=== PATIENT | female | born 1985 | race Caucasian/White ===

== ENCOUNTER → 2020-06-01 09:34 | Outpatient (CLI) | payer MEDICARE, MEDICAID, SELFPAY ==
--- NOTE | 2020-06-01 | DI.MG.S_ITS ---
BILATERAL DIGITAL SCREENING MAMMOGRAM 3D/2D WITH CAD: 06/01/2020 CLINICAL: Routine screening. Comparison is made to exams dated: 05/11/2017 mammogram, 05/10/2016 mammogram, and 09/30/2015 mammogram - [facility]. The tissue of both breasts is heterogeneously dense. This may lower the sensitivity of mammography. Current study was also evaluated with a Computer Aided Detection (CAD) system. There is an oval equal density asymmetry with an indistinct margin in the left breast middle depth superior region seen on the mediolateral oblique view only. No other significant masses, calcifications, or other findings are seen in either breast. IMPRESSION: INCOMPLETE: NEEDS ADDITIONAL IMAGING EVALUATION The oval equal density asymmetry in the left breast is indeterminate. Mediolateral and spot compression views as well as additional views with possible ultrasound are recommended. This exam was interpreted at Station ID: [id number]. NOTE: For mammograms, a report in lay terms will be sent to the patient. Approximately 15% of breast malignancies will not be visualized mammographically. In the management of a palpable breast mass, a negative mammogram must not discourage biopsy of a clinically suspicious lesion. Electronically Signed By: Bentley wise/pipe:06/01/2020 10:48:11 letter sent: Additional Imaging Needed ACR BI-RADS Category 0: Incomplete [id number]
== END ==
PROVIDERS: Referring Provider Naturopath; Visit Provider Naturopath
DX: Z12.31 Encounter for screening mammogram for malignant neoplasm of breast (principal)
CPT/HCPCS: 77063; 77067

== ENCOUNTER → 2020-06-21 14:04 | Outpatient (CLI) | payer MEDICARE, MEDICAID, SELFPAY ==
--- NOTE | 2020-06-21 | DI.US.S_ITS ---
ULTRASOUND OF LEFT BREAST: 06/21/2020 CLINICAL: Left breast abnormal mammo. Comparison is made to exams dated: 06/21/2020 mammogram, 06/01/2020 mammogram, 05/11/2017 mammogram, and 05/10/2016 [facility]. Color flow and real-time ultrasound of the left breast were performed. [place] scale images of the real-time examination were reviewed. There is a 0.4 cm x 0.2 cm x 0.3 cm simple oval cyst in the left breast at 12 o'clock middle depth 5 cm from the nipple. This oval cyst is anechoic. Color flow imaging demonstrates that there is no vascularity present. THis may or may not correlate with the mammographic finding seen in the superior left breast on the MLO view only. IMPRESSION: PROBABLY BENIGN The 0.4 cm x 0.2 cm x 0.3 cm oval cyst in the left breast is consistent with a simple cyst and is probably benign as it may or may not correlate with the superior left breast asymmetry seen on recent screening and today's mammograms. A follow-up left mammogram with possible left ultrasound in 6 months is recommended to demonstrate continued stability. Findings and recommendations were conveyed to the patient during today's visit. This exam was interpreted at Station ID: [id number]. Electronically Signed By: Ari Grider M.D. at/:06/21/2020 16:19:57 letter sent: Followup Recommended Ultrasound BI-RADS: 3 Probably benign
--- NOTE | 2020-06-21 | DI.MG.S_ITS ---
UNILATERAL LEFT DIGITAL DIAGNOSTIC MAMMOGRAM 3D/2D WITH ADDITIONAL VIEWS: 06/21/2020 CLINICAL: Additional evaluation requested from prior study. Comparison is made to exams dated: 06/01/2020 mammogram, 05/11/2017 mammogram, and 05/10/2016 mammogram - [facility]. The tissue of left breast is heterogeneously dense. This may lower the sensitivity of mammography. Redemonstration of the 0.4 cm x 0.7 cm oval equal density asymmetry with an obscured margin in the left breast middle depth superior region seen on the mediolateral oblique view only. This is seen on today's additional views. No other significant masses or calcifications are seen in the breast. IMPRESSION: INCOMPLETE: NEEDS ADDITIONAL IMAGING EVALUATION The 0.4 cm x 0.7 cm oval equal density asymmetry in the left breast is indeterminate. An ultrasound is recommended for further evaluation and is scheduled to immediately follow this study. This exam was interpreted at Station ID: [id number]. NOTE: For mammograms, a report in lay terms will be sent to the patient. Approximately 15% of breast malignancies will not be visualized mammographically. In the management of a palpable breast mass, a negative mammogram must not discourage biopsy of a clinically suspicious lesion. Electronically Signed By: Ari Grider M.D. aty/:06/21/2020 16:13:12 ACR BI-RADS Category 0: Incomplete [id number]
== END ==
PROVIDERS: Referring Provider Naturopath; Visit Provider Naturopath
DX: R92.8 Other abnormal and inconclusive findings on diagnostic imaging of breast (principal); N60.02 Solitary cyst of left breast
CPT/HCPCS: 76642; 77065; G0279

== ENCOUNTER → 2020-09-09 14:52 | Outpatient (CLI) | payer MEDICARE, MEDICAID, SELFPAY | PROVIDERS: PCP Naturopath; Visit Provider Obstetrics & Gynecology | DX: F98.0 Enuresis not due to a substance or known physiological condition (principal); R32 Unspecified urinary incontinence | CPT/HCPCS: 87086 ==

== ENCOUNTER → 2020-12-27 13:45 | Outpatient (CLI) | payer MEDICARE, MEDICAID, SELFPAY ==
--- NOTE | 2020-12-27 13:46 | DI.US.S_ITS ---
PROCEDURE: US THYROID INDICATIONS: Enlarged thyroid TECHNIQUE: Real-time scanning was performed of the thyroid gland, with image documentation. COMPARISON: None. FINDINGS: Right: Thyroid lobe measures 5.1 x 1.3 x 2.0 cm, and is homogeneous in echotexture. Left: Thyroid lobe measures 5.4 x 1.2 x 1.8 cm, and is homogenous in echotexture. Isthmus: 3 mm thick. Nodule number: 2 Location: Right inferior Size: 0.5 x 0.3 x 0.3 cm Composition: Predominantly cystic Echogenicity: Hypoechoic Shape: Wider than tall Margins: Smooth Echogenic foci: Macrocalcification Total points: 3 ACR TI-RADS category: 3, mildly suspicious Nodule number: 3 Location: Left upper Size: 0.4 x 0.3 x 0.5 cm Composition: Predominantly cystic Echogenicity: Hypoechoic Shape: Wider than tall Margins: Smooth Echogenic foci: Macrocalcification Total points: 3 ACR TI-RADS category: 3, mildly suspicious Nodule number: 4 Location: Left mid Size: 1.1 x 0.5 x 0.9 cm Composition: Predominantly cystic Echogenicity: Hypoechoic Shape: Wider than tall Margins: Smooth Echogenic foci: Macrocalcification Total points: 3 ACR TI-RADS category: 3, mildly suspicious Nodule number: 5 Location: Left inferior Size: 0.6 x 0.4 x 0.7 cm Composition: Predominantly cystic Echogenicity: Hypoechoic Shape: Wider than tall Margins: Smooth Echogenic foci: Macrocalcification Total points: 3 ACR TI-RADS category: 3, mildly suspicious IMPRESSION: Multiple small mildly suspicious thyroid nodules that do not require dedicated imaging follow-up based on size and imaging characteristics. Imaging guidelines provided below. ACR TI-RADS definitions and recommendations: TI-RADS 1 (benign): 0 points. FNA not needed. TI-RADS 2 (not suspicious): 2 points. FNA not needed. TI-RADS 3 (mildly suspicious): 3 points. * FNA if 2.5 cm or larger, follow up if 1.5 cm or larger (at 1, 3, and 5 years). TI-RADS 4 (moderately suspicious): 4-6 points. * FNA if 1.5 cm or larger, follow up if 1 cm or larger (at 1, 2, 3, and 5 years). TI-RADS 5 (highly suspicious): 7 points or more. * FNA if 1 cm or larger, follow up if 0.5 cm or larger (every year for 5 years). Dictated by: Napoleon Rodgers M.D. on 12/28/2020 at 17:30 Approved by: Napoleon Rodgers M.D. on 12/28/2020 at 17:39
[2020-12-27 17:10] LABS: Free T4, Direct Thyroxine 1.43 ng/dL (0.78-2.19)
[2020-12-27 17:23] LABS: Thyroid Stimulating Hormone 0.578 uIU/mL (0.47-4.68)
[2021-01-01 18:41] LABS: Triiodothyronine T3 Reverse 14.7 ng/dL (9.2-24.1)
== END ==
PROVIDERS: PCP Naturopath; Referring Provider Obstetrics & Gynecology; Visit Provider Obstetrics & Gynecology
DX: E01.0 Iodine-deficiency related diffuse (endemic) goiter (principal)
CPT/HCPCS: 36415; 76536; 84439; 84443; 84481; 84482

== ENCOUNTER → 2021-01-12 13:19 | Outpatient (CLI) | payer MEDICARE, MEDICAID, SELFPAY ==
--- NOTE | 2021-01-12 | DI.MG.S_ITS ---
UNILATERAL LEFT DIGITAL DIAGNOSTIC MAMMOGRAM 3D/2D SHORT-TERM FOLLOW-UP: 01/12/2021 CLINICAL: Patient returns for a 6 month follow up of the left breast. Comparison is made to exams dated: 06/21/2020 mammogram, 06/01/2020 mammogram, and 05/11/2017 mammogram - [facility]. The tissue of left breast is heterogeneously dense. This may lower the sensitivity of mammography. There is a stable oval equal density asymmetry with a partially obscured margin in the left breast middle depth superior region seen on the mediolateral oblique view only. This is seen in additional views. No suspicious changes. No other significant masses or calcifications are seen in the breast. IMPRESSION: PROBABLY BENIGN The small asymmetry in the left breast most likely is a cyst amidst fibroglandular tissue (a simple cyst was noted in this area on the previous exam) remains unchanged and is probably benign. A follow-up mammogram in 6 months is recommended to demonstrate continued stability. Findings and recommendations were conveyed to the patient at time of exam. This exam was interpreted at Station ID: [id number]. NOTE: For mammograms, a report in lay terms will be sent to the patient. Approximately 15% of breast malignancies will not be visualized mammographically. In the management of a palpable breast mass, a negative mammogram must not discourage biopsy of a clinically suspicious lesion. Electronically Signed By: Isabela palacios/:01/12/2021 14:05:05 copy to: Teo Gonsalez MD, Dr. Elijah Gonsalez, ph: [phone] letter sent: Followup Recommended ACR BI-RADS Category 3: Probably benign [id number]
== END ==
PROVIDERS: PCP Naturopath; Referring Provider Naturopath; Visit Provider Naturopath
DX: R92.8 Other abnormal and inconclusive findings on diagnostic imaging of breast (principal); N64.89 Other specified disorders of breast; M92.8 Other specified juvenile osteochondrosis
CPT/HCPCS: 77065; G0279

== ENCOUNTER 2021-02-09 18:55 | Emergency (ER) | payer MEDICARE, MEDICAID, SELFPAY ==
[2021-02-09 19:15] VITALS: BP 136/77; PULSE 62; RESP 14; TEMP 36.9; O2SAT 100; BMI 29.7
[2021-02-09 19:44] LABS: UR Morphine/Opiate cutoff 300 Negative (Negative); Ur Creatinine Normal (Normal); Ur Specific Gravity Normal (Normal); Urine Amphetamines Negative (Negative); Urine Barbiturates Negative (Negative); Urine Benzodiazepines Negative (Negative); Urine Cocaine Negative (Negative); Urine MDMA Negative (Negative); Urine Methadone Negative (Negative); Urine Methamphetamines Negative (Negative); Urine Oxycodone Negative (Negative); Urine Phencyclidine Negative (Negative); Urine Tetrahydrocannabinol Negative (Negative); Urine Tricyclic Antidepressant Negative (Negative); Urine pH Normal (Normal)
--- NOTE | 2021-02-09 20:06 | ED_ITS ---
HPI - Psych <Yobany Pang, - Last Filed: 02/10/21 18:03> General Chief Complaint: Psychiatric Symptoms Stated Complaint: MENTAL HEALTH CRISIS Time Seen by Provider: 02/09/21 19:09 Source: patient Mode of arrival: Ambulatory Limitations: no limitations History of Present Illness HPI Narrative: Patient is a 35-year-old female who arrived with her father by private vehicle for evaluation of suicidal ideations and when she initially stated was a ?mental health crisis ?patient has had issues with mental health in the past. She stated that ?many years ago ?she attempted to kill herself and also has been admitted to the hospital in the past. She does see a mental health provider in [place]. Most recent visit with this individual was within the past month. She is currently taking medications for her symptoms. She denies alcohol or drug abuse. She states that she has many life stressors to include being a burden on herself and her family and society. She states that she is not getting any help from society with regard to her mental health issues. This evening the police were called to her house by family for evaluation after she reportedly expressed some suicidal ideation. There is also some reports that she was going to use the please in order to kill herself. She also made comments about taking pills. She is currently dealing with issues with wetting the bed. She takes medications for this. She acknowledges that these are antipsychotic medications but she states that she is not psychotic and she only takes them because of the bedwetting. She has a difficult time sleeping at night. She states that it has been months since she has had a good night sleep. She is unsure as to exactly why she is here in the emergency department other men she would just like help for her symptoms and would like help with her social issues. She states she does not want to be admitted to the hospital because of her symptoms today. Related Data Home Medications Medication Instructions Recorded Confirmed imipramine HCl 10 mg tablet 20 mg PO ONCE 10/20/20 12/16/20 Seroquel 02/09/21 Allergies Allergy/AdvReac Type Severity Reaction Status Date / Time Penicillins Allergy Mild RASH Verified 02/09/21 19:15 venom-honey bee Allergy Unknown Verified 02/09/21 19:15 [bee venom (honey bee)] fluoxetine AdvReac Mild HALLUCINATI Verified 02/09/21 19:15 ONS Review of Systems <Yobany Pang DO - Last Filed: 02/10/21 18:03> Constitutional Constitutional: Denies fever(s) and Denies headache(s) ENT Ears, Nose, Mouth, and Throat: Denies headache(s) Cardiovascular Cardiovascular: Denies chest pain and Denies dyspnea Respiratory Respiratory: Denies dyspnea Gastrointestinal Gastrointestinal: Denies abdominal pain Integumentary/Breasts Skin/Breast: Denies rash Neurologic Neurologic: Denies headache(s) Psychiatric Psychiatric: Reports abnormal sleep pattern, Reports anxiety, Reports depression, Reports hopelessness, Reports irritability and Reports suicidal ideation Hematologic/Lymphatic On Anticoagulants: No Allergic/Immunologic Allergic/Immunologic: Denies urticaria Patient History <Yobany Pang DO - Last Filed: 02/10/21 18:03> Medical History Esophagus disorder Lower urinary tract symptoms (LUTS) Mixed incontinence Secondary nocturnal enuresis Urinary incontinence in female Surgical History Status post appendectomy Status post wisdom tooth extraction Family History Father Hypertension Social History Smoking Status: Never smoker Smoking Status: Never smoker alcohol intake frequency: holidays/special occasions only Substance Use Type: does not use Exam <Yobany Pang DO - Last Filed: 02/10/21 18:03> Initial Vital Signs Initial Vital Signs: Vital Signs Temperature 98.5 F 02/09/21 19:15 Pulse Rate 62 02/09/21 19:15 Respiratory Rate 14 02/09/21 19:15 Blood Pressure 136/77 02/09/21 19:15 Pulse Oximetry 100 02/09/21 19:15 Const General: cooperative Limitations: mental status not altered HENMT Head: normal to inspection and normocephalic Resp Effort & Inspection: normal respiratory effort Cardio Rate: regular rate GI Inspection: non-distended Skin Lesions: no lesions Rashes: no rashes Neuro General: patient alert, patient awake and patient oriented x3 Gait: normal gait Extrem General: normal to inspection Psych Appearance: well kempt Speech and Movement: agitated, pressured speech and restless Mood: anxious mood and angry Affect: sad and irritable affect Attitude: cooperative Thought Content: suicidality <Juanita Ramirez MD - Last Filed: 02/10/21 18:35> Initial Vital Signs Initial Vital Signs: Vital Signs Temperature 98.5 F 02/09/21 19:15 Pulse Rate 62 02/09/21 19:15 Respiratory Rate 14 02/09/21 19:15 Blood Pressure 136/77 02/09/21 19:15 Pulse Oximetry 100 02/09/21 19:15 Course <Yobany Pang DO - Last Filed: 02/10/21 18:03> Orders Ordered: Discontinued Medications Lorazepam (Lorazepam 0.5 Mg Tablet) 1 mg PO NOW ONE Stop: 02/09/21 20:07 Last Admin: 02/09/21 20:26 Dose: 1 mg Documented by: OMAR Vital Signs Vital signs: Vital Signs - 8 hr 02/09/21 19:15 02/09/21 23:52 Temperature 98.5 F Pulse Rate 62 91 H Respiratory Rate 14 Blood Pressure 136/77 114/69 Pulse Oximetry 100 97 <Juanita Ramirez MD - Last Filed: 02/10/21 18:35> Orders Ordered: Discontinued Medications Lorazepam (Lorazepam 0.5 Mg Tablet) 1 mg PO NOW ONE Stop: 02/09/21 20:07 Last Admin: 02/09/21 20:26 Dose: 1 mg Documented by: OMAR Vital Signs Vital signs: Vital Signs - 8 hr 02/09/21 19:15 02/09/21 23:52 Temperature 98.5 F Pulse Rate 62 91 H Respiratory Rate 14 Blood Pressure 136/77 114/69 Pulse Oximetry 100 97 MDM - Psych <Yobany Pang DO - Last Filed: 02/10/21 18:03> Lab Data Attestation: I reviewed the patient's lab results. Result diagrams: 02/09/21 20:27 02/09/21 20:27 Labs: Lab Results 02/09/21 02/09/21 02/09/21 Range/Units 19:15 19:30 20:27 WBC 5.2 (4.5-11.0) X10^3/uL RBC 4.27 (4.0-5.2) X10^6/uL Hgb 13.8 (12.0-16.0) g/dL Hct 40.3 (36-46) % MCV 94.3 (80-100) fL MCH 32.4 (26-34) PG MCHC 34.3 (30-36) % RDW 11.9 (11.6-14.8) % Plt Count 204 (150-400) X10^3/uL Neut % (Auto) 57.1 (50-75) % Lymph % (Auto) 33.2 (25-40) % [place] % (Auto) 5.7 (3-14) % Eos % (Auto) 3.0 (2-4) % Baso % (Auto) 1.0 (0-2) % Neut # (Auto) 3000 (3644-8237) /uL Lymph # (Auto) 1700 (9333-9693) /uL [place] # (Auto) 300 (0-900) /uL Eos # (Auto) 200 (0-450) /uL Baso # (Auto) 100 (0-100) /uL Sodium (137-145) mmol/L Potassium (3.4-5.1) mmol/L Chloride (98-107) mmol/L Carbon Dioxide (22-32) mmol/L BUN (7-17) mg/dL Creatinine (0.52-1.04) mg/dL Estimated GFR (>60) mL/min BUN/Creatinine Ratio (6-22) Glucose (70-100) mg/dL Calcium (8.4-10.2) mg/dL Total Bilirubin (0.2-1.3) mg/dL AST (14-36) IU/L ALT (<35) IU/L Alkaline Phosphatase (38-126) U/L Total Protein (6.3-8.2) g/dL Albumin (3.5-5.0) g/dL Globulin (1.7-4.1) g/dL Albumin/Globulin Ratio (1.0-2.8) Lipase (23-300) U/L TSH (0.47-4.68) uIU/mL U Opiates 300ng/mL cut Negative (Negative) Ur Oxycodone Screen Negative (Negative) Urine Methadone Screen Negative (Negative) Acetaminophen (10-30) ug/mL Ur Barbiturates Screen Negative (Negative) U Tricyclic Antidepress Negative (Negative) Ur Phencyclidine Scrn Negative (Negative) Ur Amphetamines Screen Negative (Negative) U Methamphetamines Scrn Negative (Negative) Ur MDMA Scrn (Ecstasy) Negative (Negative) U Benzodiazepines Scrn Negative (Negative) Urine Cocaine Screen Negative (Negative) U Marijuana (THC) Screen Negative (Negative) Ethyl Alcohol ( - 10) mg/dL SARS-CoV-2 (PCR) Negative (Negative) 02/09/21 02/09/21 Range/Units 20:27 20:27 WBC (4.5-11.0) X10^3/uL RBC (4.0-5.2) X10^6/uL Hgb (12.0-16.0) g/dL Hct (36-46) % MCV (80-100) fL MCH (26-34) PG MCHC (30-36) % RDW (11.6-14.8) % Plt Count (150-400) X10^3/uL Neut % (Auto) (50-75) % Lymph % (Auto) (25-40) % Berrien % (Auto) (3-14) % Eos % (Auto) (2-4) % Baso % (Auto) (0-2) % Neut # (Auto) (8891-1148) /uL Lymph # (Auto) (6391-5247) /uL Berrien # (Auto) (0-900) /uL Eos # (Auto) (0-450) /uL Baso # (Auto) (0-100) /uL Sodium 136 L (137-145) mmol/L Potassium 3.6 (3.4-5.1) mmol/L Chloride 102 (98-107) mmol/L Carbon Dioxide 28 (22-32) mmol/L BUN 17 (7-17) mg/dL Creatinine 0.51 L (0.52-1.04) mg/dL Estimated GFR > 60.0 (>60) mL/min BUN/Creatinine Ratio 33.3 H (6-22) Glucose 94 (70-100) mg/dL Calcium 9.5 (8.4-10.2) mg/dL Total Bilirubin 0.2 (0.2-1.3) mg/dL AST 27 (14-36) IU/L ALT 19 (<35) IU/L Alkaline Phosphatase 81 (38-126) U/L Total Protein 6.9 (6.3-8.2) g/dL Albumin 4.3 (3.5-5.0) g/dL Globulin 2.6 (1.7-4.1) g/dL Albumin/Globulin Ratio 1.7 (1.0-2.8) Lipase 75 (23-300) U/L TSH 1.20 (0.47-4.68) uIU/mL U Opiates 300ng/mL cut (Negative) Ur Oxycodone Screen (Negative) Urine Methadone Screen (Negative) Acetaminophen < 10 L (10-30) ug/mL Ur Barbiturates Screen (Negative) U Tricyclic Antidepress (Negative) Ur Phencyclidine Scrn (Negative) Ur Amphetamines Screen (Negative) U Methamphetamines Scrn (Negative) Ur MDMA Scrn (Ecstasy) (Negative) U Benzodiazepines Scrn (Negative) Urine Cocaine Screen (Negative) U Marijuana (THC) Screen (Negative) Ethyl Alcohol < 10 ( - 10) mg/dL SARS-CoV-2 (PCR) (Negative) Point of Care Testing Test Results Negative Urine Dip Bedside Urine Glucose Negative Bedside Urine Bilirubin - Negative Bedside Urine Ketone - Negative Urine Specific [place] 1.020 Bedside Urine Occult Blood - Negative Bedside Urine pH 7 Bedside Urine Protein - Negative Bedside Urine Urobilinogen - Negative Bedside Urine Nitrite - Negative Bedside Urine Leukocytes - Negative Esterase MDM Narrative Medical decision making narrative: Patient is medically cleared. She does have a mental health provider that she sees a what appears to be on a fairly regular basis. Patient states that she does not want to be admitted to the hospital. She obviously has many social issues stating that side is not helping her with her mental health problems. Her father who was initially at bedside agrees that the every time they have tried to get her set up with different types of programs she is denied. There has been discussion about low years getting of all to help with these issues. The patient states she feels like she is a burden on herself and also were family. She was willing to stay in the [facility] department this evening in order to talk with social work the next day. She was given Ativan to help her calm down and also to help her sleep. She is medically cleared. Care turned over to day provider at change of shift to follow up with social work and disposition. <Juanita Ramirez MD - Last Filed: 02/10/21 18:35> Medical Records Attestation: I reviewed the patient's medical records. Lab Data Attestation: I reviewed the patient's lab results. Labs: Lab Results 02/09/21 02/09/21 02/09/21 Range/Units 19:15 19:30 20:27 WBC 5.2 (4.5-11.0) X10^3/uL RBC 4.27 (4.0-5.2) X10^6/uL Hgb 13.8 (12.0-16.0) g/dL Hct 40.3 (36-46) % MCV 94.3 (80-100) fL MCH 32.4 (26-34) PG MCHC 34.3 (30-36) % RDW 11.9 (11.6-14.8) % Plt Count 204 (150-400) X10^3/uL Neut % (Auto) 57.1 (50-75) % Lymph % (Auto) 33.2 (25-40) % Berrien % (Auto) 5.7 (3-14) % Eos % (Auto) 3.0 (2-4) % Baso % (Auto) 1.0 (0-2) % Neut # (Auto) 3000 (3451-2535) /uL Lymph # (Auto) 1700 (4357-8960) /uL Berrien # (Auto) 300 (0-900) /uL Eos # (Auto) 200 (0-450) /uL Baso # (Auto) 100 (0-100) /uL Sodium (137-145) mmol/L Potassium (3.4-5.1) mmol/L Chloride (98-107) mmol/L Carbon Dioxide (22-32) mmol/L BUN (7-17) mg/dL Creatinine (0.52-1.04) mg/dL Estimated GFR (>60) mL/min BUN/Creatinine Ratio (6-22) Glucose (70-100) mg/dL Calcium (8.4-10.2) mg/dL Total Bilirubin (0.2-1.3) mg/dL AST (14-36) IU/L ALT (<35) IU/L Alkaline Phosphatase (38-126) U/L Total Protein (6.3-8.2) g/dL Albumin (3.5-5.0) g/dL Globulin (1.7-4.1) g/dL Albumin/Globulin Ratio (1.0-2.8) Lipase (23-300) U/L TSH (0.47-4.68) uIU/mL U Opiates 300ng/mL cut Negative (Negative) Ur Oxycodone Screen Negative (Negative) Urine Methadone Screen Negative (Negative) Acetaminophen (10-30) ug/mL Ur Barbiturates Screen Negative (Negative) U Tricyclic Antidepress Negative (Negative) Ur Phencyclidine Scrn Negative (Negative) Ur Amphetamines Screen Negative (Negative) U Methamphetamines Scrn Negative (Negative) Ur MDMA Scrn (Ecstasy) Negative (Negative) U Benzodiazepines Scrn Negative (Negative) Urine Cocaine Screen Negative (Negative) U Marijuana (THC) Screen Negative (Negative) Ethyl Alcohol ( - 10) mg/dL SARS-CoV-2 (PCR) Negative (Negative) 02/09/21 02/09/21 Range/Units 20:27 20:27 WBC (4.5-11.0) X10^3/uL RBC (4.0-5.2) X10^6/uL Hgb (12.0-16.0) g/dL Hct (36-46) % MCV (80-100) fL MCH (26-34) PG MCHC (30-36) % RDW (11.6-14.8) % Plt Count (150-400) X10^3/uL Neut % (Auto) (50-75) % Lymph % (Auto) (25-40) % Berrien % (Auto) (3-14) % Eos % (Auto) (2-4) % Baso % (Auto) (0-2) % Neut # (Auto) (1774-2754) /uL Lymph # (Auto) (0709-2040) /uL Berrien # (Auto) (0-900) /uL Eos # (Auto) (0-450) /uL Baso # (Auto) (0-100) /uL Sodium 136 L (137-145) mmol/L Potassium 3.6 (3.4-5.1) mmol/L Chloride 102 (98-107) mmol/L Carbon Dioxide 28 (22-32) mmol/L BUN 17 (7-17) mg/dL Creatinine 0.51 L (0.52-1.04) mg/dL Estimated GFR > 60.0 (>60) mL/min BUN/Creatinine Ratio 33.3 H (6-22) Glucose 94 (70-100) mg/dL Calcium 9.5 (8.4-10.2) mg/dL Total Bilirubin 0.2 (0.2-1.3) mg/dL AST 27 (14-36) IU/L ALT 19 (<35) IU/L Alkaline Phosphatase 81 (38-126) U/L Total Protein 6.9 (6.3-8.2) g/dL Albumin 4.3 (3.5-5.0) g/dL Globulin 2.6 (1.7-4.1) g/dL Albumin/Globulin Ratio 1.7 (1.0-2.8) Lipase 75 (23-300) U/L TSH 1.20 (0.47-4.68) uIU/mL U Opiates 300ng/mL cut (Negative) Ur Oxycodone Screen (Negative) Urine Methadone Screen (Negative) Acetaminophen < 10 L (10-30) ug/mL Ur Barbiturates Screen (Negative) U Tricyclic Antidepress (Negative) Ur Phencyclidine Scrn (Negative) Ur Amphetamines Screen (Negative) U Methamphetamines Scrn (Negative) Ur MDMA Scrn (Ecstasy) (Negative) U Benzodiazepines Scrn (Negative) Urine Cocaine Screen (Negative) U Marijuana (THC) Screen (Negative) Ethyl Alcohol < 10 ( - 10) mg/dL SARS-CoV-2 (PCR) (Negative) Point of Care Testing Test Results Negative Urine Dip Bedside Urine Glucose Negative Bedside Urine Bilirubin - Negative Bedside Urine Ketone - Negative Urine Specific [place] 1.020 Bedside Urine Occult Blood - Negative Bedside Urine pH 7 Bedside Urine Protein - Negative Bedside Urine Urobilinogen - Negative Bedside Urine Nitrite - Negative Bedside Urine Leukocytes - Negative Esterase MDM Narrative Medical decision making narrative: 35-year-old woman, care is assumed awaiting social work help with suicide ideation/psychiatric issues. She is requesting her morning meds including 1 g of Phenix Thyroid, iodine, fish oil. Offered to calculate appropriate dose of Synthroid and she declined. She will see if her father can bring her armor thyroid in. She also notes that she takes Seroquel for sleep in the evenings but is unsure of the dose. Care and behaviors have been escalating slightly over the course of the morning. She was asking to talk with the lower before the hospice social worker. When in and chatted with her now. She is absolutely not interested in adding any medications and she currently is working with a psychiatrist as well as a provisioning specialist. She is not interested in inpatient voluntary care at this time. She has passive suicidal ideation and would ?like somebody to do it for her? but has no specific plan to hurt herself. She has a safe place to live and a father who sound supportive and willing to transport her to visits if available. She would like increased counseling time and would be interested in seeing what ad ditional outpatient mental health options could be available to her. She finds that 1 hour a month with her psychiatrist, Dr. Gonsalez with [facility] and [place], is not adequate. At this point she has flat affect but is able to focus and concentrate. She is clearly making appropriate decisions is not a danger to herself or others and is absolutely voluntary. Explained her that the next step in helping her would be having her check with our hospice social worker to see what additional options we have. She was amenable to this. 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 She apparently carries the provisional diagnosis of autism. This will be for case management [phone]. Is looking for additional counseling options and will arrange for [facility] check ins over the next couple of days Discharge Plan Departure Patient Disposition: Home Clinical Impression: Suicidal ideations, Autism Activity Restrictions/Additional Instructions: Thank you for coming in today You had a chance to talk with our hospice social worker. He is given you information to contact Aging and Disability Services through [facility] [phone]. The may be able to help with case management an additional services for you. You are aware of Psychology today web site [facility] will be contacting you over the next few days to make sure that you are feeling safe. You can also contact the social work light here at [facility] at [phone] If you do feel unsafe and feel that you are going to hurt yourself directly, please feel free to return to the emergency department Prescriptions: No Action Seroquel RF: 0 imipramine HCl 10 mg tablet 20 mg PO ONCE RF: 0 Referrals: Alan Quiros ND [Primary Care Provider] -
[2021-02-09 20:08] LABS: COVID19 -Nasal RAPID Negative (Negative)
[2021-02-09] MEDS: LORazepam 0.5 MG TABLET 1 MG PO (20:26)
[2021-02-09 20:34] LABS: Add Manual Diff / Slide Review NO; Basophils Absolute Auto 100 /uL (0-100); Eosinophils Absolute Auto 200 /uL (0-450); Hematocrit 40.3 % (36-46); Hemoglobin 13.8 g/dL (12.0-16.0); Lymphocytes Absolute Auto 1700 /uL (1100-4500); Lymphocytes Percent Auto 33.2 % (25-40); Mean Corpuscular HGB Conc 34.3 % (30-36); Mean Corpuscular Hemoglobin 32.4 PG (26-34); Mean Corpuscular Volume 94.3 fL (80-100); Monocytes Absolute Auto 300 /uL (0-900); Monocytes Percent Auto 5.7 % (3-14); Neutrophils Absolute Auto 3000 /uL (1500-7000); Neutrophils Percent Auto 57.1 % (50-75); Platelet Count 204 X10^3/uL (150-400); Red Blood Cell Count 4.27 X10^6/uL (4.0-5.2); Red Cell Distribution Width 11.9 % (11.6-14.8); White Blood Cell Count 5.2 X10^3/uL (4.5-11.0)
[2021-02-09 20:55] LABS: Acetaminophen < 10 ug/mL (10-30); Alanine Aminotransferase 19 IU/L (<35); Albumin 4.3 g/dL (3.5-5.0); Albumin Globulin Ratio 1.7 (1.0-2.8); Alkaline Phosphatase 81 U/L (38-126); Aspartate Aminotransferase 27 IU/L (14-36); BUN Creatinine Ratio 33.3 (6-22); Bilirubin Total 0.2 mg/dL (0.2-1.3); Blood Urea Nitrogen 17 mg/dL (7-17); Calcium 9.5 mg/dL (8.4-10.2); Carbon Dioxide 28 mmol/L (22-32); Chloride 102 mmol/L (98-107); Estimated Glomerular Filt Rate > 60.0 mL/min (>60); Ethanol (ETOH) < 10 mg/dL; Globulin 2.6 g/dL (1.7-4.1); Glucose 94 mg/dL (70-100); HEMOLYSIS < 15 (0-50); Lipase 75 U/L (23-300); Potassium 3.6 mmol/L (3.4-5.1); Sodium 136 mmol/L (137-145); Total Protein 6.9 g/dL (6.3-8.2)
--- NOTE | 2021-02-09 21:12 | PC.NURSE ---
1929: Pt sitting up in bed. Reports I don't know what to do. I'm so overwhelmed. She called the crisis line around 1300 and crisis line called police. She states the police told me he would bring me here and then said he couldn't because the overtime wasn't approved. Pt brought in by her dad, who is in the car. Reports thoughts of ending her life due to increased stress and I can't get the help that I need. Reports frustrations with getting community help for resources she needs to assist with her Autism Spectrum Disorder. When asked if she has a specific plan states, maybe I could take some pills. Denies hoarding pills. Reports suicide attempt years ago I took pills and was in the ICU. Pt hasn't been sleeping well for the past 4-5 months. This has been exacerbated by bed wetting that has been occuring for the past two years. She has seen urologist Mary and was reffered to . Has appt in February. 1939: Pt states it is okay for her dad to be in room. He states that they have been trying to get pt resources to help take the load off of her with her Autism Disorder. She qualifies by federal standards, but not state. She's been trying to get her food stamps increased. Pt lives with her dad. 1944: in room to speak with pt. Pt continues to report vague plan of I don't know what I would do. I don't want to be a burden on society. Pt also reports not knowing if she wants to transfer to a facility, she is afraid of COVID. 1999: Pt dad brought belongings, placed in locked cabinet. Pt did change into pajamas and pull up brief. 2025: Pt given po Ativan for anxiety. Ear plugs provided to help pt rest. Warm blanket provided, lights turned down. Curtain open.
[2021-02-09 23:52] VITALS: BP 114/69; PULSE 91; O2SAT 97
--- NOTE | 2021-02-10 04:59 | PC.NURSE ---
Pt tearful. Pt states that she wishes she was because she doesn't want to be a burden on her father. Pt states that she wishes she could be allowed to advocate for herself but doesn't know how
--- NOTE | 2021-02-10 07:33 | PC.NURSE ---
Patient is sitting up in bed waiting for her breakfast. She is calm and compliant at this time.
--- NOTE | 2021-02-10 08:01 | PC.NURSE ---
Pt was offered synthroid as we do not carry armour thyroid. Pt declined at this time and requested that I call her father to bring it to her.
--- NOTE | 2021-02-10 08:03 | PC.NURSE ---
I attempted to call pts father to bring meds to her. There was no answer
--- NOTE | 2021-02-10 08:31 | PC.NURSE ---
pt requested we call her father to have him bring milk for her. we spoke to him concerning that.
--- NOTE | 2021-02-10 09:45 | PC.NURSE ---
pt up to bathroom
--- NOTE | 2021-02-10 12:50 | PC.NURSE ---
Pt states that she wants with dignity paperwork and for the social insurance specialist to assist with it. before and after school daycare worker made aware that she will speak with him. Pt also would like to speak with [place] public defenders office and asked for phone as well as number.
--- NOTE | 2021-02-10 12:56 | PC.NURSE ---
Given depends, wipes and cream for personal hygiene. Given phone and phone number for [place] public defenders office at her request.
--- NOTE | 2021-02-10 13:32 | PC.NURSE ---
Pt provided with [facility] Training [employer] Officer number as requested. now in room talking with pt.
--- NOTE | 2021-02-10 13:58 | PC.NURSE ---
ENVIRONMENTAL INTERN in room with pt.
--- NOTE | 2021-02-10 14:18 | PC.NURSE ---
Dad arrived and is in room with Pt. CUSTOMER ENGAGEMENT SPECIALIST working on resources available to patient.
--- NOTE | 2021-02-10 14:51 | CM.SWNOTE ---
DIRECTOR ZONE Assessment
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
== END 2021-02-10 15:23 | disposition home or self-care (01) ==
PROVIDERS: Emergency Medicine; Emergency Provider Emergency Medicine; PCP Naturopath
DX: R45.851 Suicidal ideations (principal); F84.0 Autistic disorder; Z20.822 Contact with and (suspected) exposure to COVID-19
CPT/HCPCS: 36415; 80053; 80305; 80320; 80329; 81003; 81025; 83690; 84443; 85025; 87635; 99284; C9803; G0480

== ENCOUNTER → 2021-06-29 12:16 | Outpatient (CLI) | payer MEDICARE, MEDICAID, SELFPAY ==
--- NOTE | 2021-06-29 | DI.US.S_ITS ---
LIMITED ULTRASOUND OF RIGHT BREAST: 06/29/2021 CLINICAL: Patient returns today to evaluate a focal asymmetry in the right breast. Comparison is made to exams dated: 06/29/2021 mammogram, 06/01/2020 mammogram, 05/11/2017 mammogram, and 05/10/2016 mammogram - [facility]. Color flow and real-time ultrasound of the right breast 10-12 o'clock region were performed. Austin scale images of the real-time examination were reviewed. There is a benign 0.9 cm simple cyst in the right breast at 12 o'clock posterior depth. IMPRESSION: BENIGN There is no sonographic evidence of malignancy. The 0.9 cm simple cyst in the right breast is benign. Return to annual mammogram screening schedule is recommended. This exam was interpreted at Station ID: [id number]. Electronically Signed By: Luis M Santos M.D., jr/pipe:06/29/2021 14:59:35 copy to: Teo Gonsalez MD, Dr. Elijah Gonsalez, ph: [phone] letter sent: Normal Exam Ultrasound BI-RADS: 2 Benign
--- NOTE | 2021-06-29 12:18 | DI.MG.S_ITS ---
BILATERAL DIGITAL DIAGNOSTIC MAMMOGRAM 3D/2D: 06/29/2021 CLINICAL: Short term follow up of the left breast, due for bilateral imaging. Comparison is made to exams dated: 01/12/2021 mammogram, 06/21/2020 ultrasound, 06/21/2020 mammogram, and 06/01/2020 mammogram - [facility]. The tissue of both breasts is heterogeneously dense. This may lower the sensitivity of mammography. There is a new 0.9 cm focal asymmetry in the right breast at 11 o'clock posterior depth. There is a stable oval equal density asymmetry with an obscured margin in the left breast middle depth superior region seen on the mediolateral oblique view only. This is seen in additional views. No other significant masses or calcifications are seen in either breast. IMPRESSION: INCOMPLETE: NEEDS ADDITIONAL IMAGING EVALUATION The new 0.9 cm focal asymmetry in the right breast at 11 o'clock posterior depth is indeterminate. An ultrasound is recommended. The stable oval equal density asymmetry in the left breast middle depth superior region seen on the mediolateral oblique view only most likely is a cyst or fibroglandular tissue and is benign. No further follow-up needed for this asymmetry. This exam was interpreted at Station ID: [id number]. NOTE: For mammograms, a report in lay terms will be sent to the patient. Approximately 15% of breast malignancies will not be visualized mammographically. In the management of a palpable breast mass, a negative mammogram must not discourage biopsy of a clinically suspicious lesion. Electronically Signed By: Luis M Santos M.D. jr/:06/29/2021 14:58:55 copy to: Teo Gonsalez MD, Dr. Elijah Gonsalez, ph: [phone] ACR BI-RADS Category 0: Incomplete [id number]
== END ==
PROVIDERS: PCP Naturopath; Referring Provider Obstetrics & Gynecology; Visit Provider Obstetrics & Gynecology
DX: R92.8 Other abnormal and inconclusive findings on diagnostic imaging of breast (principal); N60.01 Solitary cyst of right breast; N64.89 Other specified disorders of breast
CPT/HCPCS: 76642; 77066; G0279

== ENCOUNTER → 2021-07-27 16:16 | Outpatient (CLI) | payer MEDICARE, MEDICAID, SELFPAY ==
[2021-07-27 18:36] LABS: Alanine Aminotransferase 24 IU/L (<35); Albumin 4.1 g/dL (3.5-5.0); Albumin Globulin Ratio 1.5 (1.0-2.8); Alkaline Phosphatase 74 U/L (38-126); Aspartate Aminotransferase 29 IU/L (14-36); BUN Creatinine Ratio 22.5 (6-22); Bilirubin Total 0.3 mg/dL (0.2-1.3); Blood Urea Nitrogen 16 mg/dL (7-17); Calcium 8.8 mg/dL (8.4-10.2); Carbon Dioxide 28 mmol/L (22-32); Chloride 103 mmol/L (98-107); Estimated Glomerular Filt Rate > 60.0 mL/min (>60); Globulin 2.7 g/dL (1.7-4.1); Glucose 79 mg/dL (70-100); HEMOLYSIS < 15 (0-50); Potassium 3.9 mmol/L (3.4-5.1); Sodium 138 mmol/L (137-145); Total Protein 6.8 g/dL (6.3-8.2)
[2021-07-27 18:51] LABS: Free T3, Triiodothyronine Free 3.93 pg/mL (2.77-5.27); Free T4, Direct Thyroxine 1.25 ng/dL (0.78-2.19)
[2021-07-27 19:05] LABS: Thyroid Stimulating Hormone 0.822 uIU/mL (0.47-4.68)
[2021-07-28 18:07] LABS: Anti Thyroglobulin Antibody <1.0 IU/mL (0.0-0.9)
== END ==
PROVIDERS: PCP Family Medicine; Referring Provider Family Medicine; Visit Provider Family Medicine
DX: E01.0 Iodine-deficiency related diffuse (endemic) goiter (principal); F41.8 Other specified anxiety disorders
CPT/HCPCS: 36415; 80053; 84439; 84443; 84481; 86800

== ENCOUNTER → 2021-08-11 13:54 | Outpatient (CLI) | payer MEDICARE, MEDICAID, SELFPAY ==
--- NOTE | 2021-08-11 14:15 | DIET.OUTPTC ---
Dietary Outpatient Consultation Note Consultation Date: 08/11/[address] 36[address] visit to address difficulty losing weight secondary to hypothyroid and lower extremity edema. Pt curious if she has food allergy to egg, has not noticed difficulty eating them, but curious if factoring in to difficulty losing weight. Pt working c PCP Kiarra and an ND in [place] who put her on anti-inflammatory diet:no gluten, no dairy, no white sugar, no corn, no caffeine Wt Hx: was 200# and now maintaining 185# for past year, has goal for 125# but her PCP feels 160# is better place to start. Usual Day: wakes 4am showers takes thyroid meds and supps (liquid iodine, elderberry, vitamin c, food based vitamin- (not spacing thyroid meds, eating with MVI) cup decaf coffee and smoothie (protein powder, coconut yogurt, 1/2c coconut milk, 1/2 c organic berries, 2 scoops collagen) goes to gym in [place] for 30 min gets home 10:30am doing some work that is stressful, mom recently had stroke when hungry having lunch: vegan caesar dressing in a salad c chicken or tuna sometimes snacks on fruit and or nuts, sunflower seeds D: salmon with veggies, stirfry, calamari, sweet potato c 1/2 steak, sometimes Turkmen no snacks before bed, sometimes 1/4c almonds goes to gym 4-5x/w on elliptical 30 minutes Pt has math learning disability. Interventions: 1. Educated pt on appropriate thyroid med routine for food and drug interactions. Pt to wait 30-60 minutes after taking meds to have breakfast. Pt to take MVI 4 or more hours after thyroid med for best absorption. 2. Set pt to 1500kcals/d for 1-2#/w weight loss. Worked c pt to transcribe calorie levels into food based intervention on worksheet. Pt to eat 3 meals per day and up to 2 snacks (up to 150kcals each if needed for hunger). 3. Educated pt on importance of strength training to support metabolism and transition fat mass to muscle mass. Pt will look into [employer] for two 30 minute strength training sessions per week in addition to current gym cardio routine. 4. To address pts question about egg allergy. Educated pt that elimination/reintroduction cycle best way to identify food sensitivity (not true food allergy). Pt to avoid all eggs for 2w then expose herself to egg to see if sx occur. Recc pt try this a few times and if no noticable sx, likely fine to eat eggs. Electronically Signed by: Denise Zavala 08/11/21 14:15 Clinical Dietitian [address] [id number]
[2021-08-11 14:37] VITALS: BMI 30.7
== END ==
PROVIDERS: PCP Family Medicine; Referring Provider Family Medicine; Visit Provider Family Medicine
DX: E03.9 Hypothyroidism, unspecified (principal); R60.0 Localized edema; Z71.3 Dietary counseling and surveillance
CPT/HCPCS: 97802

== ENCOUNTER → 2021-11-25 17:07 | Outpatient (CLI) | payer MEDICARE, MEDICAID, SELFPAY ==
[2021-11-25 18:17] LABS: Erythrocyte Sedimentation Rate 10 MM/HR (0-20)
[2021-11-25 18:18] LABS: C-Reactive Protein Quant < 0.5 mg/dL (<1.0)
[2021-11-27 13:08] LABS: ANA Screen, IFA Negative (.)
== END ==
PROVIDERS: PCP Family Medicine; Referring Provider Family Medicine; Visit Provider Family Medicine
DX: R53.82 Chronic fatigue, unspecified (principal); R60.0 Localized edema
CPT/HCPCS: 36415; 85651; 86038; 86140

== ENCOUNTER → 2022-02-28 14:40 | Outpatient (CLI) | payer MEDICARE, MEDICAID, SELFPAY ==
[2022-02-28 18:03] LABS: COVID-19 CEPHEID PCR (VTM/NP) Negative (Negative)
== END ==
PROVIDERS: PCP Family Medicine; Visit Provider Family Medicine Sleep Medicine
DX: Z20.822 Contact with and (suspected) exposure to COVID-19 (principal)
CPT/HCPCS: C9803; U0003; U0005

== ENCOUNTER 2022-04-17 07:22 | Emergency (ER) | payer MEDICARE, MEDICAID, SELFPAY ==
[2022-04-17 07:27] VITALS: BP 119/75; PULSE 63; RESP 18; TEMP 36.5; O2SAT 100; BMI 31.6
--- NOTE | 2022-04-17 08:14 | PC.NURSE ---
Pt got out of bed and began hitting her head lightly on the wall repeatedly. Took 2 attempts at redirecting and pt returned to bed.
[2022-04-17 08:23] LABS: Add Manual Diff / Slide Review NO; Basophils Absolute Auto 0 /uL (0-100); Basophils Percent Auto 1.2 % (0-2); Eosinophils Absolute Auto 100 /uL (0-450); Eosinophils Percent Auto 2.9 % (2-4); Hematocrit 39.7 % (36-46); Hemoglobin 13.7 g/dL (12.0-16.0); Lymphocytes Absolute Auto 1000 /uL (1100-4500); Lymphocytes Percent Auto 30.4 % (25-40); Mean Corpuscular HGB Conc 34.6 % (30-36); Mean Corpuscular Hemoglobin 30.8 PG (26-34); Mean Corpuscular Volume 89.1 fL (80-100); Monocytes Absolute Auto 200 /uL (0-900); Monocytes Percent Auto 6.9 % (3-14); Neutrophils Absolute Auto 1800 /uL (1500-7000); Neutrophils Percent Auto 58.6 % (50-75); Platelet Count 181 X10^3/uL (150-400); Red Blood Cell Count 4.45 X10^6/uL (4.0-5.2); Red Cell Distribution Width 12.1 % (11.6-14.8); White Blood Cell Count 3.2 X10^3/uL (4.5-11.0)
[2022-04-17 08:23] LABS: UR Morphine/Opiate cutoff 300 Negative (Negative); Ur Creatinine Normal (Normal); Ur Specific Gravity Normal (Normal); Urine Amphetamines Negative (Negative); Urine Barbiturates Negative (Negative); Urine Benzodiazepines Negative (Negative); Urine Cocaine Negative (Negative); Urine MDMA Negative (Negative); Urine Methadone Negative (Negative); Urine Methamphetamines Negative (Negative); Urine Oxycodone Negative (Negative); Urine Phencyclidine Negative (Negative); Urine Tetrahydrocannabinol Negative (Negative); Urine Tricyclic Antidepressant Negative (Negative); Urine pH Normal (Normal)
--- NOTE | 2022-04-17 08:27 | ED.PSYCH ---
HPI - Psych <Angeline Hill, DO - Last Filed: 04/17/22 18:41> General Chief Complaint: Psychiatric Symptoms Stated Complaint: SI Time Seen by Provider: 04/17/22 08:27 Source: patient Mode of arrival: Ambulatory Limitations: no limitations History of Present Illness HPI Narrative: This is a 36-year-old female with suicidal ideation, requesting assistance to . Patient states she has been having thoughts, she does not have a specific plan but she has been trying to think of one. She feels overwhelmed currently about her psychiatric issues, she has also concerned as she states that she is disabled and she is unable to be independent in a burden on her father. She also notes that she is overweight she has been trying to lose weight been unsuccessful and these all in combination have been stressing her significantly. She states she just feels like she is stuck and that she is not moving forward in her life for making any improvements. She states she would just like to sleep for ever. sees in [facility] and they provide her primary care. She has a history of hypothyroidism, she is not on any psychiatric medications. She states that she does not like to take medications. Patient does not wish to be admitted to [facility] and when asked if she feels she needs inpatient treatment states that stepped us because we are the experts. Patient that is she sees a psychiatrist but they do not prescribe any medications. She was seen Dr. Castaneda for her primary care but states she got a letter her from the office she is unclear as to why she received this. She has had prior esophageal dilation and appendectomy. Related Data Home Medications Medication Instructions Recorded Confirmed ascorbic acid (vitamin C) 60 mg 60 mg PO DAILY ea 07/27/21 11/25/21 lozenges cholecalciferol (vitamin D3) 25 25 mcg PO DAILY 07/27/21 11/25/21 mcg (1,000 unit) capsule elderberry fruit 200 mg capsule mg PO 07/27/21 11/25/21 iodine strong (Lugols) 5 % oral 5 drp PO ONCE 07/27/21 11/25/21 solution (Lugols) iron bisglycinate chelate mg PO 07/27/21 11/25/21 melatonin 3 mg capsule 3 mg PO BEDTIME PRN 07/27/21 11/25/21 salmon oil-omega-3 fatty acids cap PO 07/27/21 11/25/21 1,000 mg-200 mg capsule (Paoli Oil-1000) Previous Rx's Medication Instructions Recorded hydrochlorothiazide 12.5 mg tablet 12.5 mg PO DAILY #30 tab 12/14/21 liothyronine 5 mcg tablet 10 mcg PO DAILY #180 tab 01/05/22 Allergies Allergy/AdvReac Type Severity Reaction Status Date / Time Penicillins Allergy Mild RASH Verified 04/17/22 07:27 venom-honey bee Allergy Unknown Verified 04/17/22 07:27 [bee venom (honey bee)] fluoxetine AdvReac Mild HALLUCINATI Verified 04/17/22 07:27 ONS Review of Systems <Angeline Hill DO - Last Filed: 04/17/22 18:41> Review of Systems ROS Unobtainable: All systems reviewed & are unremarkable except as noted in HPI and below Patient History <Angeline Hill DO - Last Filed: 04/17/22 18:41> Medical History Esophagus disorder Lower urinary tract symptoms (LUTS) Mixed incontinence Secondary nocturnal enuresis Urinary incontinence in female Surgical History Status post appendectomy Status post wisdom tooth extraction Family History Father Hypertension Social History Smoking Status: Never smoker Smoking Status: Never smoker alcohol intake frequency: holidays/special occasions only Substance Use Type: does not use Exam <Angeline Hill DO - Last Filed: 04/17/22 18:41> Narrative Exam Narrative: GENERAL: Alert and oriented x three, female in mild distress. Clear speech. HEENT: Head normocephalic, atraumatic, EOMI, pupils reactive, face symmetric, moist mucous membranes NECK: Supple, full range of motion CARDIOVASCULAR: Regular rate and rhythm without murmurs, rubs or gallops. RESPIRATORY: Breath sounds equal bilaterally, no wheezes rales or rhonchi. ABDOMEN: Soft, nontender. Normoactive bowel sounds all 4 quadrants. No guarding or rebound, rigidity, no mass : No CVA tenderness EXTREMITIES: Normal range of motion, no clubbing or edema. Neurovascularly intact NEUROLOGICAL: Cranial nerves II through XII grossly intact. Moving all extremities SKIN: Warm, dry, no petechiae, no rashes or lesions. PSYCH: Suicidal thoughts, intent but presents voluntarily, no suicidal plan. No homicidal thoughts or intent. No hallucinations. Depression, anxiety. Patient does appear to have some obsessive thoughts. Initial Vital Signs Initial Vital Signs: Vital Signs Temperature 97.7 F 04/17/22 07:27 Pulse Rate 63 04/17/22 07:27 Respiratory Rate 18 04/17/22 07:27 Blood Pressure 119/75 04/17/22 07:27 Pulse Oximetry 100 04/17/22 07:27 <Juanita Ramirez MD - Last Filed: 04/18/22 06:16> Initial Vital Signs Initial Vital Signs: Vital Signs Temperature 97.7 F 04/17/22 07:27 Pulse Rate 63 04/17/22 07:27 Respiratory Rate 18 04/17/22 07:27 Blood Pressure 119/75 04/17/22 07:27 Pulse Oximetry 100 04/17/22 07:27 Course <Angeline Hill DO - Last Filed: 04/17/22 18:41> Orders Ordered: Discontinued Medications Diclofenac Sodium (Diclofenac 1% Gel 100 Gm) 1 applic TOP NOW ONE Stop: 04/17/22 09:53 Last Admin: 04/17/22 10:28 Dose: 1 applic Documented by: MIKKI Diphenhydramine HCl (Diphenhydramine 50 Mg/Ml Vial) 50 mg IM NOW ONE Stop: 04/17/22 14:11 Last Admin: 04/17/22 15:15 Dose: 50 mg Documented by: MIKKI Haloperidol (Haloperidol 5 Mg/Ml Vial) 5 mg IM NOW ONE Stop: 04/17/22 14:12 Last Admin: 04/17/22 15:15 Dose: 5 mg Documented by: MIKKI Lorazepam (Lorazepam 2 Mg/Ml Inj) 2 mg IM NOW ONE Stop: 04/17/22 14:12 Last Admin: 04/17/22 15:14 Dose: 2 mg Documented by: MIKKI Reevaluation(s) Reevaluation #1: Patient trying to leave department. She cannot or will not contract for safety. She was physically return to her room but was not violent or aggressive. She attempted to leave 3 multiple doors including diagnostic radiology. She states that she wants to and that we should just let her and that we are wasting our resources and time on her. Patient I then sat down and discussed that we need to keep her safe and if she is not able to contract for safety which she is not at this time that she cannot leave and will be involuntary. Patient was offered medication for anxiety or stress. She states she would rather go to [facility] than anywhere else but states she really just wants to leave. She states she does not like hospitals. She is not interested in any medication. Time: 14:00 Reevaluation #2: Patient eloped from the department but her sitter was with her as well as our INSTRUMENTATION ENGINEERING TECHNICIAN. There with her the entire time PD was dispatched and assisted the patient back within their custody. Patient was given Haldol, Lorzepam and Benadryl IM for chemical restraint. Time: 14:37 Vital Signs Vital signs: Vital Signs - 8 hr 04/17/22 18:46 Temperature 98.1 F Pulse Rate 95 H Respiratory Rate 18 Pulse Oximetry 97 <Juanita Ramirez MD - Last Filed: 04/18/22 06:16> Orders Ordered: Discontinued Medications Diclofenac Sodium (Diclofenac 1% Gel 100 Gm) 1 applic TOP NOW ONE Stop: 04/17/22 09:53 Last Admin: 04/17/22 10:28 Dose: 1 applic Documented by: MIKKI Diphenhydramine HCl (Diphenhydramine 50 Mg/Ml Vial) 50 mg IM NOW ONE Stop: 04/17/22 14:11 Last Admin: 04/17/22 15:15 Dose: 50 mg Documented by: MIKKI Haloperidol (Haloperidol 5 Mg/Ml Vial) 5 mg IM NOW ONE Stop: 04/17/22 14:12 Last Admin: 04/17/22 15:15 Dose: 5 mg Documented by: MIKKI Lorazepam (Lorazepam 2 Mg/Ml Inj) 2 mg IM NOW ONE Stop: 04/17/22 14:12 Last Admin: 04/17/22 15:14 Dose: 2 mg Documented by: MIKKI Vital Signs Vital signs: Vital Signs - 8 hr 04/17/22 18:46 Temperature 98.1 F Pulse Rate 95 H Respiratory Rate 18 Pulse Oximetry 97 MDM - Psych <Angeline Hill, DO - Last Filed: 04/17/22 18:41> Lab Data Result diagrams: 04/17/22 08:16 04/17/22 08:16 Labs: Lab Results 04/17/22 04/17/22 04/17/22 Range/Units 07:50 08:15 08:16 WBC 3.2 L (4.5-11.0) X10^3/uL RBC 4.45 (4.0-5.2) X10^6/uL Hgb 13.7 (12.0-16.0) g/dL Hct 39.7 (36-46) % MCV 89.1 (80-100) fL MCH 30.8 (26-34) PG MCHC 34.6 (30-36) % RDW 12.1 (11.6-14.8) % Plt Count 181 (150-400) X10^3/uL Neut % (Auto) 58.6 (50-75) % Lymph % (Auto) 30.4 (25-40) % [place] % (Auto) 6.9 (3-14) % Eos % (Auto) 2.9 (2-4) % Baso % (Auto) 1.2 (0-2) % Neut # (Auto) 1800 (0770-1260) /uL Lymph # (Auto) 1000 L (6561-2977) /uL [place] # (Auto) 200 (0-900) /uL Eos # (Auto) 100 (0-450) /uL Baso # (Auto) 0 (0-100) /uL Sodium (137-145) mmol/L Potassium (3.4-5.1) mmol/L Chloride (98-107) mmol/L Carbon Dioxide (22-32) mmol/L BUN (7-17) mg/dL Creatinine (0.52-1.04) mg/dL Estimated GFR (>60) mL/min BUN/Creatinine Ratio (6-22) Glucose (70-100) mg/dL Calcium (8.4-10.2) mg/dL Total Bilirubin (0.2-1.3) mg/dL AST (14-36) IU/L ALT (<35) IU/L Alkaline Phosphatase (38-126) U/L Total Protein (6.3-8.2) g/dL Albumin (3.5-5.0) g/dL Globulin (1.7-4.1) g/dL Albumin/Globulin Ratio (1.0-2.8) TSH (0.47-4.68) uIU/mL Free T4 (0.78-2.19) ng/dL Salicylates (<20) mg/dL U Opiates 300ng/mL cut Negative (Negative) Ur Oxycodone Screen Negative (Negative) Urine Methadone Screen Negative (Negative) Acetaminophen (10-30) ug/mL Ur Barbiturates Screen Negative (Negative) U Tricyclic Antidepress Negative (Negative) Ur Phencyclidine Scrn Negative (Negative) Ur Amphetamines Screen Negative (Negative) U Methamphetamines Scrn Negative (Negative) Ur MDMA Scrn (Ecstasy) Negative (Negative) U Benzodiazepines Scrn Negative (Negative) Urine Cocaine Screen Negative (Negative) U Marijuana (THC) Screen Negative (Negative) Ethyl Alcohol ( - 10) mg/dL SARS-CoV-2 (PCR) Negative (Negative) 04/17/22 04/17/22 Range/Units 08:16 08:16 WBC (4.5-11.0) X10^3/uL RBC (4.0-5.2) X10^6/uL Hgb (12.0-16.0) g/dL Hct (36-46) % MCV (80-100) fL MCH (26-34) PG MCHC (30-36) % RDW (11.6-14.8) % Plt Count (150-400) X10^3/uL Neut % (Auto) (50-75) % Lymph % (Auto) (25-40) % [place] % (Auto) (3-14) % Eos % (Auto) (2-4) % Baso % (Auto) (0-2) % Neut # (Auto) (8712-7812) /uL Lymph # (Auto) (4902-2241) /uL [place] # (Auto) (0-900) /uL Eos # (Auto) (0-450) /uL Baso # (Auto) (0-100) /uL Sodium 137 (137-145) mmol/L Potassium 4.1 (3.4-5.1) mmol/L Chloride 109 H (98-107) mmol/L Carbon Dioxide 26 (22-32) mmol/L BUN 7 (7-17) mg/dL Creatinine 0.56 (0.52-1.04) mg/dL Estimated GFR > 60 (>60) mL/min BUN/Creatinine Ratio 12.5 (6-22) Glucose 107 H (70-100) mg/dL Calcium 8.4 (8.4-10.2) mg/dL Total Bilirubin 0.4 (0.2-1.3) mg/dL AST 21 (14-36) IU/L ALT 16 (<35) IU/L Alkaline Phosphatase 66 (38-126) U/L Total Protein 6.3 (6.3-8.2) g/dL Albumin 3.7 (3.5-5.0) g/dL Globulin 2.6 (1.7-4.1) g/dL Albumin/Globulin Ratio 1.4 (1.0-2.8) TSH < 0.02 L (0.47-4.68) uIU/mL Free T4 2.58 H (0.78-2.19) ng/dL Salicylates < 1.0 (<20) mg/dL U Opiates 300ng/mL cut (Negative) Ur Oxycodone Screen (Negative) Urine Methadone Screen (Negative) Acetaminophen < 10 (10-30) ug/mL Ur Barbiturates Screen (Negative) U Tricyclic Antidepress (Negative) Ur Phencyclidine Scrn (Negative) Ur Amphetamines Screen (Negative) U Methamphetamines Scrn (Negative) Ur MDMA Scrn (Ecstasy) (Negative) U Benzodiazepines Scrn (Negative) Urine Cocaine Screen (Negative) U Marijuana (THC) Screen (Negative) Ethyl Alcohol < 10 ( - 10) mg/dL SARS-CoV-2 (PCR) (Negative) Point of Care Testing Test Results Negative Urine Dip Bedside Urine Glucose Negative Bedside Urine Bilirubin - Negative Bedside Urine Ketone - Negative Urine Specific [place] 1.015 Bedside Urine Occult Blood - Negative Bedside Urine pH 6.0 Bedside Urine Protein - Negative Bedside Urine Urobilinogen 0.2 Bedside Urine Nitrite - Negative Bedside Urine Leukocytes - Negative Esterase MDM Narrative Medical decision making narrative: This is a 36-year-old female who presents with suicidal ideation, initially no plan but then expressed 1 to our DECORATING INSTRUCTOR has states she has 1 herself, she will not contract for safety she is reluctant to go to any facilities but cannot and will not state or endorse that she can keep herself safe. She has had longstanding anxiety depression with suicidal ideation in the past. Today she began to escalate she hit her head on the wall was redirected verbally, she was medically cleared although her T4 is elevated and should stop her thyroid supplementation at this time but does not show any other changes consistent with hyperthyroidism on exam or clinically. She expressed multiple times that she wants to and asked for assistance in killing herself, patient states that right to is present in the state but we discussed this is for individuals with terminal diagnosis and there is a long process that does not involve emergency physicians. Patient states that were wasting time and resources on her and that she should just go home to . Patient did attempt to leave the department was redirected back, then ran out the ambulance [place], sitter was with her and then PD she was never on accompanied and she was returned to the emergency department and given chemical restraint. Patient evaluated by NAYELY Villarreal, she elects not to speak with him after consultation with their earlier. Phil is initiating GETACHEW. Patient signed out to Dr. Ramirez while awaiting disposition. <Juanita Ramirez MD - Last Filed: 04/18/22 06:16> Lab Data Labs: Lab Results 04/17/22 04/17/22 04/17/22 Range/Units 07:50 08:15 08:16 WBC 3.2 L (4.5-11.0) X10^3/uL RBC 4.45 (4.0-5.2) X10^6/uL Hgb 13.7 (12.0-16.0) g/dL Hct 39.7 (36-46) % MCV 89.1 (80-100) fL MCH 30.8 (26-34) PG MCHC 34.6 (30-36) % RDW 12.1 (11.6-14.8) % Plt Count 181 (150-400) X10^3/uL Neut % (Auto) 58.6 (50-75) % Lymph % (Auto) 30.4 (25-40) % [place] % (Auto) 6.9 (3-14) % Eos % (Auto) 2.9 (2-4) % Baso % (Auto) 1.2 (0-2) % Neut # (Auto) 1800 (2132-4919) /uL Lymph # (Auto) 1000 L (4863-0974) /uL [place] # (Auto) 200 (0-900) /uL Eos # (Auto) 100 (0-450) /uL Baso # (Auto) 0 (0-100) /uL Sodium (137-145) mmol/L Potassium (3.4-5.1) mmol/L Chloride (98-107) mmol/L Carbon Dioxide (22-32) mmol/L BUN (7-17) mg/dL Creatinine (0.52-1.04) mg/dL Estimated GFR (>60) mL/min BUN/Creatinine Ratio (6-22) Glucose (70-100) mg/dL Calcium (8.4-10.2) mg/dL Total Bilirubin (0.2-1.3) mg/dL AST (14-36) IU/L ALT (<35) IU/L Alkaline Phosphatase (38-126) U/L Total Protein (6.3-8.2) g/dL Albumin (3.5-5.0) g/dL Globulin (1.7-4.1) g/dL Albumin/Globulin Ratio (1.0-2.8) TSH (0.47-4.68) uIU/mL Free T4 (0.78-2.19) ng/dL Salicylates (<20) mg/dL U Opiates 300ng/mL cut Negative (Negative) Ur Oxycodone Screen Negative (Negative) Urine Methadone Screen Negative (Negative) Acetaminophen (10-30) ug/mL Ur Barbiturates Screen Negative (Negative) U Tricyclic Antidepress Negative (Negative) Ur Phencyclidine Scrn Negative (Negative) Ur Amphetamines Screen Negative (Negative) U Methamphetamines Scrn Negative (Negative) Ur MDMA Scrn (Ecstasy) Negative (Negative) U Benzodiazepines Scrn Negative (Negative) Urine Cocaine Screen Negative (Negative) U Marijuana (THC) Screen Negative (Negative) Ethyl Alcohol ( - 10) mg/dL SARS-CoV-2 (PCR) Negative (Negative) 04/17/22 04/17/22 Range/Units 08:16 08:16 WBC (4.5-11.0) X10^3/uL RBC (4.0-5.2) X10^6/uL Hgb (12.0-16.0) g/dL Hct (36-46) % MCV (80-100) fL MCH (26-34) PG MCHC (30-36) % RDW (11.6-14.8) % Plt Count (150-400) X10^3/uL Neut % (Auto) (50-75) % Lymph % (Auto) (25-40) % [place] % (Auto) (3-14) % Eos % (Auto) (2-4) % Baso % (Auto) (0-2) % Neut # (Auto) (7531-3690) /uL Lymph # (Auto) (2212-0752) /uL [place] # (Auto) (0-900) /uL Eos # (Auto) (0-450) /uL Baso # (Auto) (0-100) /uL Sodium 137 (137-145) mmol/L Potassium 4.1 (3.4-5.1) mmol/L Chloride 109 H (98-107) mmol/L Carbon Dioxide 26 (22-32) mmol/L BUN 7 (7-17) mg/dL Creatinine 0.56 (0.52-1.04) mg/dL Estimated GFR > 60 (>60) mL/min BUN/Creatinine Ratio 12.5 (6-22) Glucose 107 H (70-100) mg/dL Calcium 8.4 (8.4-10.2) mg/dL Total Bilirubin 0.4 (0.2-1.3) mg/dL AST 21 (14-36) IU/L ALT 16 (<35) IU/L Alkaline Phosphatase 66 (38-126) U/L Total Protein 6.3 (6.3-8.2) g/dL Albumin 3.7 (3.5-5.0) g/dL Globulin 2.6 (1.7-4.1) g/dL Albumin/Globulin Ratio 1.4 (1.0-2.8) TSH < 0.02 L (0.47-4.68) uIU/mL Free T4 2.58 H (0.78-2.19) ng/dL Salicylates < 1.0 (<20) mg/dL U Opiates 300ng/mL cut (Negative) Ur Oxycodone Screen (Negative) Urine Methadone Screen (Negative) Acetaminophen < 10 (10-30) ug/mL Ur Barbiturates Screen (Negative) U Tricyclic Antidepress (Negative) Ur Phencyclidine Scrn (Negative) Ur Amphetamines Screen (Negative) U Methamphetamines Scrn (Negative) Ur MDMA Scrn (Ecstasy) (Negative) U Benzodiazepines Scrn (Negative) Urine Cocaine Screen (Negative) U Marijuana (THC) Screen (Negative) Ethyl Alcohol < 10 ( - 10) mg/dL SARS-CoV-2 (PCR) (Negative) Point of Care Testing Test Results Negative Urine Dip Bedside Urine Glucose Negative Bedside Urine Bilirubin - Negative Bedside Urine Ketone - Negative Urine Specific [place] 1.015 Bedside Urine Occult Blood - Negative Bedside Urine pH 6.0 Bedside Urine Protein - Negative Bedside Urine Urobilinogen 0.2 Bedside Urine Nitrite - Negative Bedside Urine Leukocytes - Negative Esterase MDM Narrative Medical decision making narrative: This is a 36-year-old female who presents with suicidal ideation, initially no plan but then expressed 1 to our DECORATING INSTRUCTOR has states she has 1 herself, she will not contract for safety she is reluctant to go to any facilities but cannot and will not state or endorse that she can keep herself safe. She has had longstanding anxiety depression with suicidal ideation in the past. Today she began to escalate she hit her head on the wall was redirected verbally, she was medically cleared although her T4 is elevated and should stop her thyroid supplementation at this time but does not show any other changes consistent with hyperthyroidism on exam or clinically. She expressed multiple times that she wants to and asked for assistance in killing herself, patient states that right to is present in the state but we discussed this is for individuals with terminal diagnosis and there is a long process that does not involve emergency physicians. Patient states that were wasting time and resources on her and that she should just go home to . Patient did attempt to leave the department was redirected back, then ran out the ambulance [place], sitter was with her and then PD she was never on accompanied and she was returned to the emergency department and given chemical restraint. Patient evaluated by NAYELY Villarreal, she elects not to speak with him after consultation with their earlier. Phil is initiating GETACHEW. Patient signed out to Dr. Ramirez while awaiting disposition. 733pm DECORATING INSTRUCTOR spoke with NAYELY. Patient had asked for of lower and declined speaking with NAYELY. He is now working on involuntary placement and patient's care is being reviewed at [facility] in [facility] and [facility] in [facility]. There are no other psychiatric beds available in closer facilities. 9pm The above facilities have declined this patient. The DCR is forced to do a ?walk away?. Patient has been sleeping quietly much of the evening. At this point she is still not willing to contract for safety in still is not safe to be discharged to her own recognizance. Have our social service liaison continue to work on bed placement. If bed becomes available prior to 9:00 p.m. this evening we can call the DCR back otherwise in the can do so after 9:00 p.m. this evening. Discharge Plan Departure Prescriptions: No Action hydrochlorothiazide 12.5 mg tablet 12.5 mg PO DAILY Qty: 30 0RF liothyronine 5 mcg tablet 10 mcg PO DAILY Qty: 180 0RF melatonin 3 mg capsule 3 mg PO BEDTIME PRN0RF Paoli Oil-1000 1,000-200 mg capsule PO 0RF iron bisglycinate chelate 28 mg iron capsule PO 0RF cholecalciferol (vitamin D3) 25 mcg (1,000 unit) capsule 25 mcg PO DAILY 0RF Lugols 5 % solution 5 drp PO ONCE 0RF elderberry fruit 200 mg capsule PO 0RF ascorbic acid (vitamin C) 60 mg lozenge 60 mg PO DAILY 0RF Referrals: Alan Quiros ND [Primary Care Provider] - <Juanita Ramirez MD - Last Filed: 04/18/22 06:16> Cosign ED Attending Cosignature Attestation: I was immediately available in the department for consultation throughout this patient's visit. I agree with documentation as above. Juanita Ramirez MD
[2022-04-17 08:31] LABS: COVID19 -Nasal RAPID Negative (Negative)
[2022-04-17 08:33] LABS: Acetaminophen < 10 ug/mL (10-30); Alanine Aminotransferase 16 IU/L (<35); Albumin 3.7 g/dL (3.5-5.0); Albumin Globulin Ratio 1.4 (1.0-2.8); Alkaline Phosphatase 66 U/L (38-126); Aspartate Aminotransferase 21 IU/L (14-36); BUN Creatinine Ratio 12.5 (6-22); Bilirubin Total 0.4 mg/dL (0.2-1.3); Blood Urea Nitrogen 7 mg/dL (7-17); Calcium 8.4 mg/dL (8.4-10.2); Carbon Dioxide 26 mmol/L (22-32); Chloride 109 mmol/L (98-107); Estimated Glomerular Filt Rate > 60 mL/min (>60); Ethanol (ETOH) < 10 mg/dL; Globulin 2.6 g/dL (1.7-4.1); Glucose 107 mg/dL (70-100); HEMOLYSIS < 15 (0-50); Potassium 4.1 mmol/L (3.4-5.1); Salicylate < 1.0 mg/dL (<20); Sodium 137 mmol/L (137-145); Total Protein 6.3 g/dL (6.3-8.2)
[2022-04-17 09:19] LABS: TSH w/ Reflex to FT4 < 0.02 uIU/mL (0.47-4.68)
[2022-04-17 09:45] LABS: Free T4, Direct Thyroxine 2.58 ng/dL (0.78-2.19)
[2022-04-17] MEDS: DICLOFENAC 1% GEL 100 GM 1 APPLIC TOP (10:28)
--- NOTE | 2022-04-17 13:49 | PC.NURSE ---
Addendum entered by Tosin Gomes R.N. 04/17/22 19:01: 1900: Pt care turned over to NOC shift. Pt continuing to rest with eyes closed. Addendum entered by Tosin Gomes R.N. 04/17/22 18:49: 1850: Pt has made no attempts to leave and has been compliant with all care since restraint were removed. Relaster attempted to engage pt in conversation but she politely declined, stating I don't want to talk right now. Pt resting with eyes closed. 1:1 observation continues. Addendum entered by Tosin Gomes R.N. 04/17/22 18:27: 1825: Pt speaking with united states attorney via phone, commercial real estate underwriter standing outside room to give pt privacy yet maintain visualization of pt to ensure safety at all times. Addendum entered by Tosin Gomes R.N. 04/17/22 18:20: 1820: Pt spoke with crisis personnel via ipad, and pt requested to speak with an united states attorney. Crisis personnel to arrange so pt may speak with united states attorney via phone. Addendum entered by Tosin Gomes R.N. 04/17/22 16:49: 1645: Pt drowsy yet easily arousable to voice. States I am sorry for the way I acted. I will not try to leave again. Restraints removed and pt resting with eyes closed. 1:1 observation continues. Addendum entered by Tosin Gomes R.N. 04/17/22 15:35: 1535: Pt able to remove restraint on L hand. Restraint reapplied by other staff. No s/s injury noted. Addendum entered by Tosin Gomes R.N. 04/17/22 15:32: 1520: Pt placed in 4 point locking restraints. Safety checks performed, no s/s breakdown noted. Relaster removed multiple items in room including tables and cords for pt and staff safety, as pt stated I will get violent with you. Addendum entered by Tosin Gomes R.N. 04/17/22 15:17: 1510: $ RNs, this commercial real estate underwriter, CIVIL STRUCTURAL DESIGNER, and 3 police officers in room attempting to keep pt from leaving again. ordered ativan, haldol, and benadryl IM to help calm pt, administered by another RN with no immediate appreciable effect. Pt making multiple attempts to leave. Restraints ordered and not applied at present time, multiple staff members and 3 police officers in pt room. Addendum entered by Tosin Gomes R.N. 04/17/22 14:57: 1435: Pt left room and ran for exit. Relaster followed pt outside and repeatedly attempted to have pt voluntarily return to ED room. Pt continued stating I want to go home, I don't like being confined while aimlessly wandering around hospital parking lot. Police arrived and spoke with pt, who again repeated that she did not wish to stay at the hospital. MD confirmed with PD that pt is now involuntary psych hold and PD stated they will return pt to ED. Relaster awaiting pt's return to resume 1:1 observation. Addendum entered by Tosin Gomes R.N. 04/17/22 14:11: 1405: Pt agitated and repeatedly stating I want to go home. Pt then exited and room and began wandering ED. Multiple staff engaged to maintain pt safety and pt voluntarily returned to room. MD currently in room speaking with pt. 1:1observation continues. Addendum entered by Tosin Gomes R.N. 04/17/22 14:02: 1400: Pt requesting to go home. Primary RN in room to discuss with pt. 1:1 observation continues. Original Note: 1340: 1:1 observation transferred to this commercial real estate underwriter. Pt sitting up in bed, denies complaints or SI at present time. Provided snack upon request.
--- NOTE | 2022-04-17 14:00 | PC.NURSE ---
4605- pt yelling in room, requesting to leave. Pt stated she had no plan for SI, she just thinks about it. Wants to go home. While discussing this pt yelled I'm done talking to you and attempted to leave. Pt returned to room and spoke with Dr Hill, heard when asked if she wanted to harm herself, pt stated, I dont know Pt
--- NOTE | 2022-04-17 14:37 | PC.NURSE ---
Pt ran out of department through ambulance bay doors, sitter alongside patient. PD notified. KARELY Yeung, returned call with Adelina SHEIKH, pt by walk in clinic and PD had just arrived.
--- NOTE | 2022-04-17 14:43 | PC.NURSE ---
When the pt settled in late in the morning, she got up from bed and began lightly knocking her head into the wall. Her nurse, Antoine, was notified and de-escalated the situation. Pt was calm, reading her book, and laying down for many hours. Around 1400, pt seemed agitated. She stated multiple times I want to go home...I want to go home. Her voice got louder. She walked out and tried to leave by trying different doors around the unit. Eventually she went to the restroom, came out, made a lap around the unit to the ambulance bay doors. Her doctor spoke to her and she walked back to her room. Her doctor had a conversation with her in her room, and the patient stayed on her bed quietly. A little after this incident, she made a call to her father and discussed with him the situation--that she wasn't allowed to leave. She eventually called her therapist who didn't answer. She left him a voicemail detailing the circumstances. After this last call, she stood up from bed. She quickly ran out of the room toward the ambulance bay doors and left. She was followed by Antoine (her nuse) and Adelina (the sitter). Antoine returned and a call to the police was placed. Police returned with the pt and walked her to her room after awhile. She was very upset and emotional at this point and kept insisting she wanted to leave.
[2022-04-17] MEDS: LORazepam 2 MG/ML INJ IM (15:14)
[2022-04-17] MEDS: HALOPERIDOL 5 MG/ML VIAL IM (15:15)
[2022-04-17] MEDS: diphenhydrAMINE 50 MG/ML VIAL IM (15:15)
--- NOTE | 2022-04-17 15:15 | PC.NURSE ---
B52 given IM left VL
--- NOTE | 2022-04-17 15:39 | CM.SWNOTE ---
ENGINEERING SCIENTIST Assessment ENGINEERING SCIENTIST - Snack Stewardess Assessment ENGINEERING SCIENTIST - Snack Stewardess Assessment Time Spent with Patient Start date 04/17/22 Visit Start Time 12:35 End date 04/17/22 Visit End Time 12:55 Total time Care Management spent on 20 minutes patient visit-in minutes Mental Health Screening Include Onset, Duration, Intensity Presenting Problem Patient presents to ED due to to concern for increasing SI and depression over the last 4 months. Patient states she came to ED for assisted suicide. Patient endorses current SI and cannot contract for safety at home. Patient endorses she does not want to go to hospital and wants to go somewhere to sleep. Precipitating Event(s) Patient endorses an increase of stress, exhaustion and agitation over the last 4 months. Patient endorses she has been trying to work with a channel cementer outsole machine to get her DVR file expunged due to what it says about her MH history. Patient states that she wants to be a MH advocate and has not been able to do so due to barriers from her DVR records. Patient endorses difficulty with motivation to wake up in the morning and ongoing exhaustion . Patient Strengths Patient presents as an advocate for herself. Current Behavioral Health Provider(s) Patient states she sees Include Facility, Provider, Ph. # Psychiatrist Dr. Elijah Gonsalez at [facility] in [place], [place] (Ph. # [phone]) Patient denies any current medication because she does not want to take medication and when she did take antidepressants it increased her SI. Patient states she is trying to get in to see another Psychiatrist Dr. Talley in [place]. Psych. Hx Mental Health and Chemical Patient endorses hx of Autism Dependency Spectrum Disorder, PTSD, and Depression. Patient endorses Hx of SI. Patient denies substance and ETOH use. Family Hx of Behavioral Abuse None reported Psychiatric Hospitalizations (date(s)/ Patient endorses GETACHEW hx at location) [facility], [facility] and [facility] . Patient cannot identify when she went there and endorses that she does not want to a hospital and does not like hospitals. Psychosocial information & Support Patient is 36 y/o female who Systems resides with father in [place], [place] Patient endorses her doctors and father are her supports. School/Work Not employed, currently receiving SSA benefits Legal Concerns Legal Matters - Outstanding Issues None reported Mental Status Orientation (Person/Place/Time) A/Ox4 Stated Mood exhausted, stressed Affect (Congruent with Mood?) Anxious, flat, congruent with ASD diagnosis, tearful at times. Thought Content - Specify/Describe None reported Obsessions, Delusions, Hallucinations Thought Processes (Czwmmdu-Qkpzipms-Foxh Circumstantial, repetitive Qiyuweby-Xrwqndpa-Ktabfkozna- Hnuatzsmjidnen-Vexzemw-Oyjkkmrmpnpk- Thought Blocking) Speech (Gawnar-Iuyr-Cgmafof-Rapid-Soft- rapid, loud at times/normal. Loud-Pressured) Patient stating multiple times after meeting with ENGINEERING SCIENTIST I want to leave and increasing volume. Motor (Vwdrpe-Qwozzenbh-Bkeo-Other) normal, excessive. Patient left room in attempt to leave hospital. Patient cooperative to return back to room and then patient left ED via ambulance bay and was returned to ED via LE. Insight (Lhcc-Sorq-Kztl/Limited) poor/limited Judgement (Tbtf-Fgch-Qtcp/Limited) poor/limited Impulse Control (Adequate-Impaired) impaired, due to patient multiple attempts to leave hospital Memory (Smloccpik-Apvmfr-Nugzfo, intact, not formally assessed Impaired-Intact) Concentration (Intact-Impaired) intact Attention (Intact-Impaired) intact Behavior (Appropriate-Inappropriate) initially appropriate during assessment. Inappropriate when patient left hospital and tried to leave room multiple times. Additional Comment Patient presents as communicative and cooperative prior to escalation and absconding the ED. Risk Assessment Suicidal Ideation (Plan) Yes Homicidal Ideation (Plan) No Comment Patient denies HI. Patient endorses she came to ED for help with assisted suicide. Patient endorses an increase in SI over the last four months and states she has been experiencing depression and SI for years. Patient endorses thoughts of overdosing on over the counter medication today and endorses SI now. Patient cannot contract for safety and patient stated several times that she did not want to go to a hospital but states she may go to [facility] if she went to a hospital. After ENGINEERING SCIENTIST met with patient, patient made statements I want to leave the hospital and patient proceeded to leave hospital and was escorted back to the hospital with three law enforcement officers . Patient could not contract to stay in the room, and repeatedly stated that she would leave if given the chance. Intervention Intervention ENGINEERING SCIENTIST enters room to meet with patient. Patient endorses increasing SI , exhaustion, depression and thoughts of worthlessness. Patient states that she came to the hospital for assistance with assisted suicide. Patient states I want to be given something to . When ENGINEERING SCIENTIST speaks with patient about options of voluntary BH inpatient Hospitalization, GETACHEW hospitalization and safety planning. Patient is not agreeable to either option. Prior to patient absconding the ED, ENGINEERING SCIENTIST and ED provider discuss that patient is an appropriate candidate for DCR assessment. Patient absconds the ED and is escorted back to the ED by three LE officers. Patient is not able to contract for safety and continues to state that she will not stay in hospital room . ED provider orders soft restraints and provides patient with medication intervention via injection. When patient was returned to room by LE, patient states I want you to use your gun to kill me It is the opinion of this ENGINEERING SCIENTIST that patient is an appropriate candidate for GETACHEW hospitalization and in need of DCR assessment. ENGINEERING SCIENTIST reviews the above with ED provider Dr. Hill who indicates agreement and understanding. Plan RA Plan ENGINEERING SCIENTIST to dispatch DCR for assessment to evaluate for appropriate BH bed. SARA Lee
[2022-04-17 18:46] VITALS: PULSE 95; RESP 18; TEMP 36.7; O2SAT 97
--- NOTE | 2022-04-17 19:12 | PC.NURSE ---
Assuming 1:1 sitting. Pt is sleeping at this time. Resp even and unlabored.
--- NOTE | 2022-04-17 19:38 | CM.SWNOTE ---
BELL CLEANER Note DCR Phil is assigned to assess patient. Phil attempts to meet with patient via ipad zoom video and patient declines to meet with DCR and requests managing attorney. Supervisor [employer] calls to speak with patient privately and patient indicates that she does not want to speak further with DCR for assessment. NAYELY Villarreal calls and reports this to BELL CLEANER and states that he is pursuing to seek GETACHEW bed for patient. Phil reports that [facility] in [facility] and [facility] in [facility] are reviewing patient and states that there are no other beds in [place] at this time. BELL CLEANER reviews the above with ED provider Dr. Ramirez, and Russell SHEIKH. Plan: Await further report from Phil ADLER about GETACHEW facilities reviewing patient, BELL CLEANER to f/u with plan of care SARA Lee
--- NOTE | 2022-04-17 20:21 | PC.NURSE ---
Pt appeared uncomfortable. I helped pt reposition in the bed
[2022-04-17 20:22] VITALS: RESP 20
--- NOTE | 2022-04-17 23:21 | PC.NURSE ---
escorted patient to bathroom, assisted with repositioning patient, and gave water. patient is calm and polite.
--- NOTE | 2022-04-18 03:24 | PC.NURSE ---
pt escorted to the restroom in which she walked independently and with a steady gait , she asked me to clean her glasses and asked about when she will be transferred. I informed her that we are still looking for a hospital to take her. she stated that she would prefer not to go to [facility] or [facility] . I told her that was outside my control but I would pass it along to day shift. She though that it was early moring hours so I informed her that it was 0320 and she stated that she would go back to sleep
--- NOTE | 2022-04-18 03:47 | PC.NURSE ---
pt walked to the restroom without assistance and steady gate
--- NOTE | 2022-04-18 05:40 | PC.NURSE ---
Dr. Ramirez notified that pt is requesting her home medications.
--- NOTE | 2022-04-18 06:07 | PC.NURSE ---
gave pt a book to read
--- NOTE | 2022-04-18 06:52 | PC.NURSE ---
Pt frequently up to use the restroom. Sitter accompanies pt with this. Pt states she has a condition that causes her to needs to void frequently.
[2022-04-18 07:45] VITALS: BP 114/72; PULSE 61; RESP 16; TEMP 36.9; O2SAT 98
--- NOTE | 2022-04-18 09:59 | PC.NURSE ---
Patient requested decaf coffee black. I was able to get enviromental services KW to get me a cup of decaf for the patient. the cup had an extra cup on the outside to protect from any heat through the cup. Patient was also informed that the coffee was warm. The head of the bed was raised. Cup has lid on top for safety.
[2022-04-18] MEDS: LIOTHYRONINE 5 MCG TABLET 10 MCG PO (11:44)
[2022-04-18] MEDS: hydroCHLOROthiazide 25 MG TABLET 12.5 MG PO (11:44)
[2022-04-18 12:15] VITALS: BP 114/65; PULSE 62; RESP 16; O2SAT 99
--- NOTE | 2022-04-18 12:53 | PC.NURSE ---
patient speaking with doctor in patient room
--- NOTE | 2022-04-18 13:06 | PC.NURSE ---
Addendum entered by Valerie Osei R.N. 04/18/22 13:08: 1:1 sitter remains at bedside. Original Note: 1245: MD Mi and this RN in room at pt's request to talk to a doctor. Shmuel discusses the current plan. Pt still reports being suicidal. Pt states she would like help now. Pt provided her lunch.
--- NOTE | 2022-04-18 13:54 | CM.SWNOTE ---
Addendum entered by Dennise Thomas 04/18/22 14:45: LAUNCHMAN Assessment Note Patient has attempted to leave several times since LAUNCHMAN met with patient. Patient left ED and was escorted back to room via LE and electrical discharge machine operator. Patient continued to attempt to leave ED several more times. Patient presents with escalated labile behavior, presenting as upset and tearful at times. It is the opinion of this LAUNCHMAN that patient is need of DCR assessment to seek an GETACHEW bed. LAUNCHMAN reviews the above with ED provider Dr. Mi who indicates agreement and understanding. Plan: LAUNCHMAN to seek GETACHEW bed for patient, ED team to dispatch DCR once 24 hours have passed or if patient is accepted as GETACHEW patient. SARA Lee Original Note: LAUNCHMAN Assessment ED provider Dr. Mi meets with patient, patient endorses to ED provider that she is voluntarily seeking hospitalization. LAUNCHMAN enters room to re-assess patient. Patient presents as A/Ox4, calm, euthymic, stable, flat affect. Patient endorses she is depressed and states that she is worse than yesterday. Patient endorses current SI and states she has thoughts of taking a bottle of pills and/or swallowing pills to kill self. Patient endorses she has these thoughts about half of every day. Patient apologizes for her behavior yesterday and endorses that she is seeking help and agrees to go to a voluntary inpatient bed. Patient endorses that if she went home she is unsure about her safety and would not talk to her father about SI. Patient endorses that yesterday she came to the ED because she was seeking help. Patient endorses upon d/c she would talk to her Pscyhiatrist Dr. Gonsalez but she only sees him once a month. Plan: LAUNCHMAN to seek voluntary inpatient bed for patient. SARA Lee
--- NOTE | 2022-04-18 14:20 | PC.NURSE ---
Patient is requesting an assisted suicide
--- NOTE | 2022-04-18 14:22 | ED_ITS ---
HPI - Psych General Chief Complaint: Psychiatric Symptoms Stated Complaint: SI Time Seen by Provider: 04/17/22 08:27 Source: patient Mode of arrival: Ambulatory Related Data Home Medications Medication Instructions Recorded Confirmed ascorbic acid (vitamin C) 60 mg 60 mg PO DAILY ea 07/27/21 11/25/21 lozenges cholecalciferol (vitamin D3) 25 25 mcg PO DAILY 07/27/21 11/25/21 mcg (1,000 unit) capsule elderberry fruit 200 mg capsule mg PO 07/27/21 11/25/21 iodine strong (Lugols) 5 % oral 5 drp PO ONCE 07/27/21 11/25/21 solution (Lugols) iron bisglycinate chelate mg PO 07/27/21 11/25/21 melatonin 3 mg capsule 3 mg PO BEDTIME PRN 07/27/21 11/25/21 salmon oil-omega-3 fatty acids cap PO 07/27/21 11/25/21 1,000 mg-200 mg capsule (Warren Oil-1000) Previous Rx's Medication Instructions Recorded hydrochlorothiazide 12.5 mg tablet 12.5 mg PO DAILY #30 tab 12/14/21 liothyronine 5 mcg tablet 10 mcg PO DAILY #180 tab 01/05/22 Allergies Allergy/AdvReac Type Severity Reaction Status Date / Time Penicillins Allergy Mild RASH Verified 04/17/22 07:27 venom-honey bee Allergy Unknown Verified 04/17/22 07:27 [bee venom (honey bee)] fluoxetine AdvReac Mild HALLUCINATI Verified 04/17/22 07:27 ONS Patient History Medical History Esophagus disorder Lower urinary tract symptoms (LUTS) Mixed incontinence Secondary nocturnal enuresis Urinary incontinence in female Surgical History Status post appendectomy Status post wisdom tooth extraction Family History Father Hypertension Social History Smoking Status: Never smoker Smoking Status: Never smoker alcohol intake frequency: holidays/special occasions only Substance Use Type: does not use Exam Initial Vital Signs Initial Vital Signs: Vital Signs Temperature 97.7 F 04/17/22 07:27 Pulse Rate 63 04/17/22 07:27 Respiratory Rate 18 04/17/22 07:27 Blood Pressure 119/75 04/17/22 07:27 Pulse Oximetry 100 04/17/22 07:27 Course Orders Ordered: Discontinued Medications Diclofenac Sodium (Diclofenac 1% Gel 100 Gm) 1 applic TOP NOW ONE Stop: 04/17/22 09:53 Last Admin: 04/17/22 10:28 Dose: 1 applic Documented by: MIKKI Diphenhydramine HCl (Diphenhydramine 50 Mg/Ml Vial) 50 mg IM NOW ONE Stop: 04/17/22 14:11 Last Admin: 04/17/22 15:15 Dose: 50 mg Documented by: MIKKI Haloperidol (Haloperidol 5 Mg/Ml Vial) 5 mg IM NOW ONE Stop: 04/17/22 14:12 Last Admin: 04/17/22 15:15 Dose: 5 mg Documented by: MIKKI Hydrochlorothiazide (Hydrochlorothiazide 25 Mg Tablet) 12.5 mg PO NOW ONE Stop: 04/18/22 07:09 Last Admin: 04/18/22 11:44 Dose: 12.5 mg Documented by: OMAR Liothyronine Sodium (Liothyronine 5 Mcg Tablet) 10 mcg PO NOW ONE Stop: 04/18/22 07:09 Last Admin: 04/18/22 11:44 Dose: 10 mcg Documented by: OMAR Lorazepam (Lorazepam 2 Mg/Ml Inj) 2 mg IM NOW ONE Stop: 04/17/22 14:12 Last Admin: 04/17/22 15:14 Dose: 2 mg Documented by: MIKKI Lorazepam (Lorazepam 0.5 Mg Tablet) 1 mg PO NOW ONE Stop: 04/18/22 14:27 Last Admin: 04/18/22 14:31 Dose: 1 mg Documented by: FERNY Vital Signs Vital signs: Vital Signs - 8 hr 04/18/22 07:45 04/18/22 12:15 Temperature 98.4 F Pulse Rate 61 62 Respiratory Rate 16 16 Blood Pressure 114/72 114/65 Pulse Oximetry 98 99 MDM - Psych Lab Data Result diagrams: 04/17/22 08:16 04/17/22 08:16 Labs: Lab Results 05/30/22 05/30/22 05/30/22 Range/Units 07:50 08:15 08:16 WBC 3.2 L (4.5-11.0) X10^3/uL RBC 4.45 (4.0-5.2) X10^6/uL Hgb 13.7 (12.0-16.0) g/dL Hct 39.7 (36-46) % MCV 89.1 (80-100) fL MCH 30.8 (26-34) PG MCHC 34.6 (30-36) % RDW 12.1 (11.6-14.8) % Plt Count 181 (150-400) X10^3/uL Neut % (Auto) 58.6 (50-75) % Lymph % (Auto) 30.4 (25-40) % [place] % (Auto) 6.9 (3-14) % Eos % (Auto) 2.9 (2-4) % Baso % (Auto) 1.2 (0-2) % Neut # (Auto) 1800 (8963-2381) /uL Lymph # (Auto) 1000 L (6196-2701) /uL [place] # (Auto) 200 (0-900) /uL Eos # (Auto) 100 (0-450) /uL Baso # (Auto) 0 (0-100) /uL Sodium (137-145) mmol/L Potassium (3.4-5.1) mmol/L Chloride (98-107) mmol/L Carbon Dioxide (22-32) mmol/L BUN (7-17) mg/dL Creatinine (0.52-1.04) mg/dL Estimated GFR (>60) mL/min BUN/Creatinine Ratio (6-22) Glucose (70-100) mg/dL Calcium (8.4-10.2) mg/dL Total Bilirubin (0.2-1.3) mg/dL AST (14-36) IU/L ALT (<35) IU/L Alkaline Phosphatase (38-126) U/L Total Protein (6.3-8.2) g/dL Albumin (3.5-5.0) g/dL Globulin (1.7-4.1) g/dL Albumin/Globulin Ratio (1.0-2.8) TSH (0.47-4.68) uIU/mL Free T4 (0.78-2.19) ng/dL Salicylates (<20) mg/dL U Opiates 300ng/mL cut Negative (Negative) Ur Oxycodone Screen Negative (Negative) Urine Methadone Screen Negative (Negative) Acetaminophen (10-30) ug/mL Ur Barbiturates Screen Negative (Negative) U Tricyclic Antidepress Negative (Negative) Ur Phencyclidine Scrn Negative (Negative) Ur Amphetamines Screen Negative (Negative) U Methamphetamines Scrn Negative (Negative) Ur MDMA Scrn (Ecstasy) Negative (Negative) U Benzodiazepines Scrn Negative (Negative) Urine Cocaine Screen Negative (Negative) U Marijuana (THC) Screen Negative (Negative) Ethyl Alcohol ( - 10) mg/dL SARS-CoV-2 (PCR) Negative (Negative) 04/17/22 04/17/22 Range/Units 08:16 08:16 WBC (4.5-11.0) X10^3/uL RBC (4.0-5.2) X10^6/uL Hgb (12.0-16.0) g/dL Hct (36-46) % MCV (80-100) fL MCH (26-34) PG MCHC (30-36) % RDW (11.6-14.8) % Plt Count (150-400) X10^3/uL Neut % (Auto) (50-75) % Lymph % (Auto) (25-40) % [place] % (Auto) (3-14) % Eos % (Auto) (2-4) % Baso % (Auto) (0-2) % Neut # (Auto) (1924-4816) /uL Lymph # (Auto) (8770-6202) /uL [place] # (Auto) (0-900) /uL Eos # (Auto) (0-450) /uL Baso # (Auto) (0-100) /uL Sodium 137 (137-145) mmol/L Potassium 4.1 (3.4-5.1) mmol/L Chloride 109 H (98-107) mmol/L Carbon Dioxide 26 (22-32) mmol/L BUN 7 (7-17) mg/dL Creatinine 0.56 (0.52-1.04) mg/dL Estimated GFR > 60 (>60) mL/min BUN/Creatinine Ratio 12.5 (6-22) Glucose 107 H (70-100) mg/dL Calcium 8.4 (8.4-10.2) mg/dL Total Bilirubin 0.4 (0.2-1.3) mg/dL AST 21 (14-36) IU/L ALT 16 (<35) IU/L Alkaline Phosphatase 66 (38-126) U/L Total Protein 6.3 (6.3-8.2) g/dL Albumin 3.7 (3.5-5.0) g/dL Globulin 2.6 (1.7-4.1) g/dL Albumin/Globulin Ratio 1.4 (1.0-2.8) TSH < 0.02 L (0.47-4.68) uIU/mL Free T4 2.58 H (0.78-2.19) ng/dL Salicylates < 1.0 (<20) mg/dL U Opiates 300ng/mL cut (Negative) Ur Oxycodone Screen (Negative) Urine Methadone Screen (Negative) Acetaminophen < 10 (10-30) ug/mL Ur Barbiturates Screen (Negative) U Tricyclic Antidepress (Negative) Ur Phencyclidine Scrn (Negative) Ur Amphetamines Screen (Negative) U Methamphetamines Scrn (Negative) Ur MDMA Scrn (Ecstasy) (Negative) U Benzodiazepines Scrn (Negative) Urine Cocaine Screen (Negative) U Marijuana (THC) Screen (Negative) Ethyl Alcohol < 10 ( - 10) mg/dL SARS-CoV-2 (PCR) (Negative) Point of Care Testing Test Results Negative Urine Dip Bedside Urine Glucose Negative Bedside Urine Bilirubin - Negative Bedside Urine Ketone - Negative Urine Specific [place] 1.015 Bedside Urine Occult Blood - Negative Bedside Urine pH 6.0 Bedside Urine Protein - Negative Bedside Urine Urobilinogen 0.2 Bedside Urine Nitrite - Negative Bedside Urine Leukocytes - Negative Esterase Discharge Plan Departure Patient Disposition: Xfer Psychiatric Hosp Clinical Impression: Suicidal ideation Referrals: Alan Quiros ND [Primary Care Provider] -
--- NOTE | 2022-04-18 14:26 | PC.NURSE ---
Patient attempted running out of ambulance bay door. This KNIFE CHANGER was able to get patient to sit down in ambulance bay while doctor and VIDEO PRODUCTION ASSISTANT was able to talk to patient and get them back to their room
--- NOTE | 2022-04-18 14:30 | PC.NURSE ---
Patient stated that the doctor wants to help her feel better so he need to help kill her to make her feel better
[2022-04-18] MEDS: LORazepam 0.5 MG TABLET 1 MG PO (14:31)
--- NOTE | 2022-04-18 14:46 | PC.NURSE ---
Patient ran out of the ambulance bay and this INDEPENDENT CROP CONSULTANT called dispatch. Patient was brought back by dispatch. Patient once again tried multiple times to leave. Patient was labeled not voluntary after exiting facility.
--- NOTE | 2022-04-18 15:33 | PC.NURSE ---
Pt is in a secluded room due to high risk elopement and SI. Pt hydration and bathroom needs addressed. Pt is lying on the mattress and crying Help me, help me to get out of here; somebody help me, where is the doctor. Continue monitor.
--- NOTE | 2022-04-18 16:12 | CM.SWNOTE ---
Addendum entered by Dennise Thomas 04/18/22 20:09: CONSTRUCTION COST ESTIMATOR called [facility] and intake is not available to speak with CONSTRUCTION COST ESTIMATOR and suggests call back later in the evening. CONSTRUCTION COST ESTIMATOR calls [facility] central intake line and screens patient with intake. Anais states that [facility] is the facility that has 1 GETACHEW bed. Plan: ED team to dispatch DCR and continue to seek GETACHEW bed for patient. SARA Lee Addendum entered by Dennise Thomas 04/18/22 19:57: CONSTRUCTION COST ESTIMATOR receives VM from [facility] central line intake [facility]. (Ph. # ). It is reported that they have one GETACHEW female bed. CONSTRUCTION COST ESTIMATOR calls back and leaves VM requesting the fax number and informing intake that DCR will be assigned at 9pm. CONSTRUCTION COST ESTIMATOR provides CONSTRUCTION COST ESTIMATOR direct line and ED phone number for return call. SARA Lee Addendum entered by Dennise Thomas 04/18/22 17:30: CONSTRUCTION COST ESTIMATOR receives return call from [facility], it is reported that they at capacity. SARA Lee Original Note: CONSTRUCTION COST ESTIMATOR Note CONSTRUCTION COST ESTIMATOR calls DCR crisis line and informs them that patient will need DCR dispatch. It is reported that CONSTRUCTION COST ESTIMATOR can search for accepting GETACHEW bed for patient and call DCR dispatch or DCR can be dispatched again at 2100 after 24 hours have passed. CONSTRUCTION COST ESTIMATOR calls [facility] intake, it is reported that they only accept voluntary patients. CONSTRUCTION COST ESTIMATOR calls [facility] intake, it is reported that they are at capacity. CONSTRUCTION COST ESTIMATOR calls [facility] intake, it is reported that they are full. CONSTRUCTION COST ESTIMATOR calls [facility] intake, and leaves VM requesting return call. CONSTRUCTION COST ESTIMATOR calls [facility] [place] intake and leaves VM requesting return call. CONSTRUCTION COST ESTIMATOR calls [place] intake, it is reported that they do not have any beds for female GETACHEW patients. CONSTRUCTION COST ESTIMATOR calls [facility] intake, it is reported that there are no GETACHEW beds today but there may be openings tomorrow. CONSTRUCTION COST ESTIMATOR calls [facility] intake and leaves VM requesting return call. CONSTRUCTION COST ESTIMATOR calls [place] intake, it is reported that they are full today but may have GETACHEW beds tomorrow. CONSTRUCTION COST ESTIMATOR calls [facility] intake and leaves VM requesting return call. CONSTRUCTION COST ESTIMATOR calls [facility] central intake and leaves VM requesting return call. CONSTRUCTION COST ESTIMATOR calls [facility] intake, it is reported that they have no beds. CONSTRUCTION COST ESTIMATOR calls [place] intake, it is reported that they are at capacity with a waitlist. CONSTRUCTION COST ESTIMATOR calls [facility] intake, it is reported that they are full. CONSTRUCTION COST ESTIMATOR calls [facility] intake, it is reported that they are full and have no beds. CONSTRUCTION COST ESTIMATOR calls [facility] intake, it is reported that they are full right now but to try back in a couple of hours. CONSTRUCTION COST ESTIMATOR will call again at 1999. CONSTRUCTION COST ESTIMATOR calls [facility] ([facility]) intake, it is reported that they have no beds. CONSTRUCTION COST ESTIMATOR calls [facility] intake, and left requesting return call. Patient was declined yesterday by [facility] due to [place] of [place] and patient was declined by [facility] in [facility] due to medical concerns. Plan: CONSTRUCTION COST ESTIMATOR to f/u with returned calls and call back facilities that recommended call backs, continue to seek GETACHEW bed for patient and dispatch DCR. Dennise Thomas MSW
--- NOTE | 2022-04-18 17:17 | PC.NURSE ---
Opened bathroom for pt to use then locked again. Now lying on mattress/tearful. States I'm sorry about earlier. I'm sorry I disrupted your ER. Reassured pt that we all want her to be safe/feel safe. Dinner tray removed as pt was finished.
[2022-04-18 21:05] VITALS: BP 108/66; PULSE 98; RESP 16; O2SAT 98
--- NOTE | 2022-04-18 22:52 | PC.NURSE ---
Pt declines again to talk to DCR. Requested public relations consultant and is on the phone with him now.
== END 2022-04-19 01:20 ==
PROVIDERS: Emergency Medicine; Emergency Provider Emergency Medicine; PCP Naturopath
DX: R45.851 Suicidal ideations (principal); F32.9 Major depressive disorder, single episode, unspecified; F41.9 Anxiety disorder, unspecified
CPT/HCPCS: 36415; 80053; 80305; 80320; 80329; 81003; 81025; 84439; 84443; 85025; 87635; 96372; 99285; C9803; G0480; J1200; J1630; J2060

== ENCOUNTER → 2022-07-05 13:50 | Outpatient (CLI) | payer OTHER, MEDICAID, SELFPAY ==
--- NOTE | 2022-07-05 | DI.MG.S_ITS ---
BILATERAL DIGITAL SCREENING MAMMOGRAM 3D/2D WITH CAD: 07/05/2022 CLINICAL: Routine screening. Comparison is made to exams dated: 06/29/2021 mammogram, 06/01/2020 mammogram, and 05/11/2017 mammogram - [facility]. The tissue of both breasts is heterogeneously dense. This may lower the sensitivity of mammography. Current study was also evaluated with a Computer Aided Detection (CAD) system. No significant masses, calcifications, or other findings are seen in either breast. There has been no significant interval change. IMPRESSION: NEGATIVE There is no mammographic evidence of malignancy. A 2 year screening mammogram is recommended. Based on the Tyrer Cuzick model (a risk assessment model) the patient's lifetime risk is 13.9% and her 10 year risk is 1.4%. According to the ACR, ACS, and NCCN guidelines, an annual breast MRI exam along with mammogram is recommended if the patient's lifetime risk is 20% or greater. This exam was interpreted at Station ID: [id number]. NOTE: For mammograms, a report in lay terms will be sent to the patient. Approximately 15% of breast malignancies will not be visualized mammographically. In the management of a palpable breast mass, a negative mammogram must not discourage biopsy of a clinically suspicious lesion. Electronically Signed By: Luis M Santos M.D., jr/pipe:07/05/2022 14:22:09 copy to: Teo Gonsalez MD, Dr. Elijah Gonsalez, ph: [phone] letter sent: Normal Exam ACR BI-RADS Category 1: Negative 3341F
== END ==
PROVIDERS: PCP Naturopath; Referring Provider Naturopath; Visit Provider Naturopath
DX: Z12.31 Encounter for screening mammogram for malignant neoplasm of breast (principal)
CPT/HCPCS: 77063; 77067

== ENCOUNTER → 2022-07-26 14:24 | Outpatient (CLI) | payer OTHER, MEDICAID, SELFPAY ==
--- NOTE | 2022-07-26 14:27 | DI.RAD.S_ITS ---
PROCEDURE: XR LUMBAR SPINE 2-3V INDICATIONS: Lower back pain without sciatica, unspecified back TECHNIQUE: 3 views of the lumbar spine were acquired. COMPARISON: None. FINDINGS: Bones: 5 [id number] vertebrae are present. There is normal bony alignment. No vertebral body compression fractures. No suspicious bony lesions. Rightward curvature of the lumbar spine. Soft tissues: Overlying bowel gas pattern is normal. No suspicious soft tissue calcifications. IMPRESSION: 1. No acute abnormality of the lumbar spine. 2. Mild rightward curvature of the lumbar spine. Dictated by: Grover Miles M.D. on 07/26/2022 at 17:58 Approved by: Grover Miles M.D. on 07/26/2022 at 18:00
== END ==
PROVIDERS: PCP Naturopath; Referring Provider Internal Medicine; Visit Provider Internal Medicine
DX: M54.50 Low back pain, unspecified (principal)
CPT/HCPCS: 72100

== ENCOUNTER → 2022-08-24 | Outpatient (CLI) | payer OTHER, MEDICAID, SELFPAY ==
--- NOTE | 2022-08-24 14:20 | DI.US.S_ITS ---
PROCEDURE: US THYROID INDICATIONS: THYROID NODULE TECHNIQUE: Real-time scanning was performed of the thyroid gland, with image documentation. COMPARISON: [facility], [place], US THYROID, 12/27/2020, 14:23. FINDINGS: Right: Thyroid lobe measures 5.2 x 1.7 x 1.5 cm, and is homogeneous in echotexture. Left: Thyroid lobe measures 5.4 x 2.0 x 1 cm, and is homogenous in echotexture. Isthmus: 4.5 mm thick. 3 cystic nodules are seen, 2 on left side and 1 on right side. The small right inferior pole cyst is no longer visualized. These cysts are of not suspicious (TI-RADS 2). IMPRESSION: Small cysts in thyroid gland bilaterally. TI-RADS 2 (not suspicious). One cyst in the inferior pole of the right thyroid lobe is resolved. No further follow-up imaging is recommended. ACR TI-RADS definitions and recommendations: TI-RADS 1 (benign): 0 points. FNA not needed. TI-RADS 2 (not suspicious): 2 points. FNA not needed. TI-RADS 3 (mildly suspicious): 3 points. * FNA if 2.5 cm or larger, follow up if 1.5 cm or larger (at 1, 3, and 5 years). TI-RADS 4 (moderately suspicious): 4-6 points. * FNA if 1.5 cm or larger, follow up if 1 cm or larger (at 1, 2, 3, and 5 years). TI-RADS 5 (highly suspicious): 7 points or more. * FNA if 1 cm or larger, follow up if 0.5 cm or larger (every year for 5 years). Dictated by: Chidi Coulter M.D. on 09/06/2022 at 18:05 Approved by: Chidi Coulter M.D. on 09/06/2022 at 18:11
== END ==
PROVIDERS: PCP Naturopath; Referring Provider Physician Assistant; Visit Provider Physician Assistant
DX: E04.2 Nontoxic multinodular goiter (principal); Z86.39 Personal history of other endocrine, nutritional and metabolic disease
CPT/HCPCS: 76536

== ENCOUNTER 2023-05-24 13:00 | Outpatient (RCR) | payer OTHER, MEDICAID, SELFPAY ==
--- NOTE | 2023-04-05 14:20 | PT.OIE ---
Current Diagnoses Spondylosis, unspecified (04/05/23) Low back pain, unspecified (04/05/23) Past Medical History (Last Reviewed 04/17/22 @ 08:51 by Angeline Hill DO) Esophagus disorder Lower urinary tract symptoms (LUTS) Mixed incontinence Secondary nocturnal enuresis Urinary incontinence in female Past Surgical History (Last Reviewed 04/17/22 @ 08:51 by Angeline Hill DO) Status post appendectomy Status post wisdom tooth extraction Visit Care Team Role Provider Type Alan Quiros ND Primary Care Provider Non-Staff Specialty: Naturopathy Address: [address] [place] [address] [place], [address] Email: Ronit Hernández PA-C Attending Provider Advanced 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 Family Provider Referring Provider Specialty: Medical Address: [address] [place] [address], [id number] Email: Physical Therapy Initial Evaluation PT-OP-A Visit Information Start: 04/05/23 11:59 Freq: Status: Active Protocol: Document 04/05/23 12:46 ES (Rec: 04/05/23 14:17 ES [id number]) Out-Patient Physical Therapy Visit Information Visit Information Visit Type Initial Evaluation Visit Start Time 13:00 Visit Stop Time 13:44 Total Visit Minutes 44 Visit Number 1 Evaluation Information Evaluation Date 04/05/23 PT-OP-B Current Condition Start: 04/05/23 11:59 Freq: Status: Active Protocol: Document 04/05/23 12:46 ES (Rec: 04/05/23 14:17 ES [id number]) Current Condition History of Current Condition Onset Date 3 months ago Current Complaints Lower back pain History of Current Condition Patient reported she was sitting in a chair working on her computer and started feeling pain in her lower back . The pain is getting worse over time. Denies numbness/ tingling. Has had back pain in the past and states she has been told she has scoliosis and arthritis. Has been undergoing treatment for urinary incontinence for the past year. Is currently unemployed due to intellectual disability. Patient reports she has started using a nordic track for exercise and walking up a steep hill near her home for exercise but doesn't last very long because she gets tired quickly. Has also been doing exercises with hand weights. Prior Treatments and Tests Is waiting for approval for x- ray. Has had one visit of PT for back pain in the past but none for this episode. Future Testing and Treatments Planned Considering bariatric surgery. Is starting a weight loss medication first. Treatment Goals Patient/Caregiver Goals To lose weight, to get rid of the pain. To be able to work in the future without having back pain. PT-OP-C Subjective Start: 04/05/23 11:59 Freq: Status: Active Protocol: Document 04/05/23 12:46 ES (Rec: 04/05/23 14:17 ES [id number]) Patient Questionnaires Oswestry Low Back Index Oswestry Score 58 Oswestry Impairment 40 to 59% Impaired (Score 40- 59) OP-PT Pain Assessment Location Low back Pain Location Details Low back, lateral to spine B Intensity 9 Scale Used Numeric (0 - 10) Description Sharp Frequency Constant Pain Aggravating Factors Activity,Exercise,Standing, Sitting,Bending Pain Alleviating Factors Distraction PT-OP-J Posture/Palpation/Skin Start: 04/05/23 11:59 Freq: Status: Active Protocol: Document 04/05/23 12:46 ES (Rec: 04/05/23 14:17 ES [id number]) Posture Evaluation Position Standing Head/C-Spine Posture Forward Head T-Spine Posture Increased Kyphosis L-Spine Posture Increased Lordosis Pelvis Posture Neutral Palpation Assessment Location One Palpation Location Lumbar Palpation Findings Tenderness Palpation Details Tenderness along lumbar paraspinals B, non-specific PT-OP-K Range of Motion Start: 04/05/23 11:59 Freq: Status: Active Protocol: Document 04/05/23 12:46 ES (Rec: 04/05/23 14:17 ES [id number]) Lumbar Spine Range of Motion Lumbar Spine Active Percentage Testing Position Standing Flexion 100 Extension 100 Rotation Left 90 Rotation Right 90 Lateral Flexion Left 100 Lateral Flexion Right 90 Comments Increased pain with extension PT-OP-L Special Tests Start: 04/05/23 11:59 Freq: Status: Active Protocol: Document 04/05/23 12:46 ES (Rec: 04/05/23 14:17 ES [id number]) Special Tests Lumbar Spine Special Tests Quadruped hip extension Test Results Lumbar extension and rotation noted with B testing, painful Comments Decreased pain with cue for abdominal contraction, neutral spine Prone hip extension Test Results Lumbar extension and rotation noted with B testing, painful Comments Decreased pain with cue for abdominal contraction, neutral spine Seated hip flexion Test Results Lumbar extension and rotation with B testing, painful Comments Decreased pain with cue for abdominal contraction, neutral spine Prone Instability Test Test Results Negative Prone Knee Flexion Test Results Lumbar extension and rotation with B testing, painful Comments Decreased pain with cue for abdominal contraction, neutral spine PT-OP-M Strength Start: 04/05/23 11:59 Freq: Status: Active Protocol: Document 04/05/23 12:46 ES (Rec: 04/05/23 14:17 ES [id number]) Trunk Strength Trunk Manual Muscle Testing Testing Position Supine Core Stabilization Poor Comments Lower abdominal strength <1/5 PT-OP-Q Treatments Start: 04/05/23 11:59 Freq: Status: Active Protocol: Document 04/05/23 12:46 ES (Rec: 04/05/23 14:17 ES [id number]) Therapeutic Exercises Supine Exercises 1 Supine Exercise Name Supine isometric hip flexion for abdominal activation Reps/Minutes 3x30s Comments Instructed for home with patient demonstration and handout provided Standing Exercises 1 Standing Exercise Name Wall posture Comments Instruction for decreasing kyphotic-lordotic posture PT-OP-T Assessment and Plan Start: 04/05/23 11:59 Freq: Status: Active Protocol: Document 04/05/23 12:46 ES (Rec: 04/05/23 14:17 ES [id number]) Physical Therapy Assessment Rehab Potential Rehabilitation Potential Good Evaluation Complexity Number of Personal Factors/Comorbidities 3 or More Number of Body Systems Impaired 1-2 Clinical Presentation at Evaluation Stable Impairments Impairments Activity Tolerance,Functional Activities,Pain,Posture,ROM, Strength Goals Three Impairment Lifting Fpc Goal (LTG) Patient will be able to lift and carry 15 lbs with correct body mechanics and no increase in pain. LTG Duration 8 weeks Two Impairment Standing tolerance Steel Chipper Goal (LTG) Patient will be able to stand for at least 1 hour with 4/10 pain at worst. LTG Duration 8 weeks One Impairment Strength Short Term Goal (STG) Patient will increase lower abdominal strength to 2/5 to improve posture control and decrease pain with standing/ activity. STG Duration 4 weeks Assessment Summary Assessment Patient is a 37 year old female who presents with low back pain with a movement impairment of lumbar extension and rotation. She demonstrates kyphotic lordotic posture with standing and excessive lumbar extension and rotation with LE movement with associated increased pain . She demonstrates decreased muscle tone in general, as well as weakness in abdominals and decreased core stabilization with functional movement. She was able to reduce her back pain with movement during eval with cues for increasing abdominal muscle activation and reducing lumbar extension. She will benefit from skilled PT to address these problems in order to reduce pain and improve quality of life. Physical Therapy Plan Frequency and Duration Frequency of Treatment 1x/Week Duration of treatment (weeks) 8 Plan of Care Start Date 04/05/23 Plan of Care End Date 05/31/23 Therapeutic Interventions Therapeutic Interventions Home Exercise Program,Manual Therapy,Patient/Caregiver Education,Self-Care/Home Management,Soft Tissue Mobilization,Taping, Therapeutic Activities, Therapeutic Exercises Modalities Electric Stimulation,Hot Packs Next Visit Focus/Plan Next Note Type Treatment Note Next Visit Plan Progress core strengthening/ stabilization, posture education.
--- NOTE | 2023-04-05 14:20 | PT.OPPOC ---
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 Family Provider Referring Provider Specialty: Medical Address: [address] [place] [address], [address] Email: Plan Of Care PT-OP-T Assessment and Plan Start: 04/05/23 11:59 Freq: Status: Active Protocol: Document 04/05/23 12:46 ES (Rec: 04/05/23 14:17 ES [id number]) Physical Therapy Assessment Rehab Potential Rehabilitation Potential Good Evaluation Complexity Number of Personal Factors/Comorbidities 3 or More Number of Body Systems Impaired 1-2 Clinical Presentation at Evaluation Stable Impairments Impairments Activity Tolerance,Functional Activities,Pain,Posture,ROM, Strength Goals Three Impairment Lifting Veneer Press Operator Goal (LTG) Patient will be able to lift and carry 15 lbs with correct body mechanics and no increase in pain. LTG Duration 8 weeks Two Impairment Standing tolerance Fpc Goal (LTG) Patient will be able to stand for at least 1 hour with 4/10 pain at worst. LTG Duration 8 weeks One Impairment Strength Short Term Goal (STG) Patient will increase lower abdominal strength to 2/5 to improve posture control and decrease pain with standing/ activity. STG Duration 4 weeks Assessment Summary Assessment Patient is a 37 year old female who presents with low back pain with a movement impairment of lumbar extension and rotation. She demonstrates kyphotic lordotic posture with standing and excessive lumbar extension and rotation with LE movement with associated increased pain . She demonstrates decreased muscle tone in general, as well as weakness in abdominals and decreased core stabilization with functional movement. She was able to reduce her back pain with movement during eval with cues for increasing abdominal muscle activation and reducing lumbar extension. She will benefit from skilled PT to address these problems in order to reduce pain and improve quality of life. Physical Therapy Plan Frequency and Duration Frequency of Treatment 1x/Week Duration of treatment (weeks) 8 Plan of Care Start Date 04/05/23 Plan of Care End Date 05/31/23 Therapeutic Interventions Therapeutic Interventions Home Exercise Program,Manual Therapy,Patient/Caregiver Education,Self-Care/Home Management,Soft Tissue Mobilization,Taping, Therapeutic Activities, Therapeutic Exercises Modalities Electric Stimulation,Hot Packs Next Visit Focus/Plan Next Note Type Treatment Note Next Visit Plan Progress core strengthening/ stabilization, posture education. Plan of Care Dates Plan of Care Start Date 04/05/23 Plan of Care End Date 05/31/23 Electronically Signed by: Rupal Iverson, PT 04/05/23 4799 If you are in agreement with this Plan of Care, please return a signed and dated copy. I have reviewed this Plan of Care and certify that the skilled therapy services above are required to meet the patient?s needs. Physician Signature Date Printed Name and Credentials Clinical Instructor Signature Printed Name and Credentials
--- NOTE | 2023-04-19 15:15 | PT.OTN ---
Current Diagnoses Spondylosis, unspecified (04/19/23) Low back pain, unspecified (04/19/23) Physical Therapy Treatment Note PT-OP-A Visit Information Start: 04/05/23 11:59 Freq: Status: Active Protocol: Document 04/19/23 14:34 SP (Rec: 04/19/23 15:27 SP [id number]) Out-Patient Physical Therapy Visit Information Visit Information Visit Type Treatment Note Visit Start Time 14:34 Visit Stop Time 15:15 Total Visit Minutes 41 Visit Number 2 Number of PROFESSIONAL BUILDER Visits 1 Evaluation Information Evaluation Date 04/05/23 PT-OP-B Current Condition Start: 04/05/23 11:59 Freq: Status: Active Protocol: Document 04/05/23 12:46 ES (Rec: 04/05/23 14:17 ES [id number]) Current Condition History of Current Condition Onset Date 3 months ago Current Complaints Lower back pain History of Current Condition Patient reported she was sitting in a chair working on her computer and started feeling pain in her lower back . The pain is getting worse over time. Denies numbness/ tingling. Has had back pain in the past and states she has been told she has scoliosis and arthritis. Has been undergoing treatment for urinary incontinence for the past year. Is currently unemployed due to intellectual disability. Patient reports she has started using a nordic track for exercise and walking up a steep hill near her home for exercise but doesn't last very long because she gets tired quickly. Has also been doing exercises with hand weights. Prior Treatments and Tests Is waiting for approval for x- ray. Has had one visit of PT for back pain in the past but none for this episode. Future Testing and Treatments Planned Considering bariatric surgery. Is starting a weight loss medication first. Treatment Goals Patient/Caregiver Goals To lose weight, to get rid of the pain. To be able to work in the future without having back pain. PT-OP-C Subjective Start: 04/05/23 11:59 Freq: Status: Active Protocol: Document 04/19/23 14:34 SP (Rec: 04/19/23 15:27 SP [id number]) OP-PT Subjective Patient Comments Patient Comments Pt reports pain LB 9/10 but told could be her arthritis. The knee presses are hard and hurt her LB. PT-OP-J Posture/Palpation/Skin Start: 04/05/23 11:59 Freq: Status: Active Protocol: Document 04/05/23 12:46 ES (Rec: 04/05/23 14:17 ES [id number]) Posture Evaluation Position Standing Head/C-Spine Posture Forward Head T-Spine Posture Increased Kyphosis L-Spine Posture Increased Lordosis Pelvis Posture Neutral Palpation Assessment Location One Palpation Location Lumbar Palpation Findings Tenderness Palpation Details Tenderness along lumbar paraspinals B, non-specific PT-OP-K Range of Motion Start: 04/05/23 11:59 Freq: Status: Active Protocol: Document 04/05/23 12:46 ES (Rec: 04/05/23 14:17 ES [id number]) Lumbar Spine Range of Motion Lumbar Spine Active Percentage Testing Position Standing Flexion 100 Extension 100 Rotation Left 90 Rotation Right 90 Lateral Flexion Left 100 Lateral Flexion Right 90 Comments Increased pain with extension PT-OP-L Special Tests Start: 04/05/23 11:59 Freq: Status: Active Protocol: Document 04/05/23 12:46 ES (Rec: 04/05/23 14:17 ES [id number]) Special Tests Lumbar Spine Special Tests Quadruped hip extension Test Results Lumbar extension and rotation noted with B testing, painful Comments Decreased pain with cue for abdominal contraction, neutral spine Prone hip extension Test Results Lumbar extension and rotation noted with B testing, painful Comments Decreased pain with cue for abdominal contraction, neutral spine Seated hip flexion Test Results Lumbar extension and rotation with B testing, painful Comments Decreased pain with cue for abdominal contraction, neutral spine Prone Instability Test Test Results Negative Prone Knee Flexion Test Results Lumbar extension and rotation with B testing, painful Comments Decreased pain with cue for abdominal contraction, neutral spine PT-OP-M Strength Start: 04/05/23 11:59 Freq: Status: Active Protocol: Document 04/05/23 12:46 ES (Rec: 04/05/23 14:17 ES [id number]) Trunk Strength Trunk Manual Muscle Testing Testing Position Supine Core Stabilization Poor Comments Lower abdominal strength <1/5 PT-OP-Q Treatments Start: 04/05/23 11:59 Freq: Status: Active Protocol: Document 04/19/23 14:34 SP (Rec: 04/19/23 15:27 SP [id number]) Therapeutic Exercises Supine Exercises LTR Supine Exercise Name added toHEP Side bilateral Reps/Minutes 5 reps each, pause 3 SH Comments good feedback LB stretch, cued slow ab engage return start position SKTC Supine Exercise Name added toHEP Side bilateral Equipment Used grasp behind thigh Reps/Minutes 30 x2 Comments Good feedback post hip/LB stretch, painfree TA education Supine Exercise Name added pre ther ex for TA trng Reps/Minutes 5 SH x10 reps Comments draw in abdominal like zipping up pants while allow slow gentle breath 1 Supine Exercise Name Supine isometric hip flexion for abdominal activation Side bilateral Reps/Minutes 5 SH x10 Comments Modified Single leg today, improved TA 50% Manual Therapy Treatment Soft Tissue Mobilization back, hip Body Location B ES, paraspinal, glut max, piriformis Mobilization Type Strumming Intensity/Depth Moderate Body Position Prone Comments pillows under pelvis, ed and good feedback benefits and painfree. NExt tx discuss use ball wall if able to get for self benefits after trial. Self-Care/Home Management Treatment Education Patient Education Body Mechanics,Home Exercise Program,Pain Management Other Education -Extra time abdominal engagement draw in gently like zipping up pants. -Stated trying use pillow behind back sitting, and mindful of posture. Wants to continue to review next tx. Added TA trng w/ breath, clamshell, SKTC, LTR- improved decrease LB tension. PT-OP-T Assessment and Plan Start: 04/05/23 11:59 Freq: Status: Active Protocol: Document 04/19/23 14:34 SP (Rec: 04/19/23 15:27 SP [id number]) Physical Therapy Assessment Goals Three Impairment Lifting Detention Goal (LTG) Patient will be able to lift and carry 15 lbs with correct body mechanics and no increase in pain. LTG Duration 8 weeks Two Impairment Standing tolerance Utility Lineman Goal (LTG) Patient will be able to stand for at least 1 hour with 4/10 pain at worst. LTG Duration 8 weeks One Impairment Strength Short Term Goal (STG) Patient will increase lower abdominal strength to 2/5 to improve posture control and decrease pain with standing/ activity. STG Duration 4 weeks Assessment Summary Assessment Pt improved understanding and performance of TA engagement with cues draw in like zipping up pants. Modified core isometric knee press 90/ 90 to single leg at time improved neutral alignment. GOod feedback response to added stretching today. Pt reports less low back discomfort from 07/29 to /10 end tx. Physical Therapy Plan Frequency and Duration Frequency of Treatment 1x/Week Duration of treatment (weeks) 8 Plan of Care Start Date 04/05/23 Plan of Care End Date 05/31/23 Therapeutic Interventions Therapeutic Interventions Home Exercise Program,Manual Therapy,Patient/Caregiver Education,Self-Care/Home Management,Soft Tissue Mobilization,Taping, Therapeutic Activities, Therapeutic Exercises Modalities Electric Stimulation,Hot Packs Next Visit Focus/Plan Next Note Type Treatment Note Next Visit Plan NExt tx: review HEP: TA isometric press, clamshell and flexibility: SKTC and LTR. Add sleep positioning use pillows and continue seated/ standing posture. POC: Progress core strengthening/stabilization, posture education.
--- NOTE | 2023-05-15 14:40 | PT.OTN ---
Current Diagnoses Spondylosis, unspecified (05/15/23) Low back pain, unspecified (05/15/23) Physical Therapy Treatment Note PT-OP-A Visit Information Start: 04/05/23 11:59 Freq: Status: Active Protocol: Document 05/15/23 13:51 ES (Rec: 05/15/23 14:40 ES [id number]) Out-Patient Physical Therapy Visit Information Visit Information Visit Type Treatment Note Visit Start Time 13:52 Visit Stop Time 14:30 Total Visit Minutes 38 Visit Number 3 Number of MACHINE DYER Visits 0 Evaluation Information Evaluation Date 04/05/23 PT-OP-B Current Condition Start: 04/05/23 11:59 Freq: Status: Active Protocol: Document 04/05/23 12:46 ES (Rec: 04/05/23 14:17 ES [id number]) Current Condition History of Current Condition Onset Date 3 months ago Current Complaints Lower back pain History of Current Condition Patient reported she was sitting in a chair working on her computer and started feeling pain in her lower back . The pain is getting worse over time. Denies numbness/ tingling. Has had back pain in the past and states she has been told she has scoliosis and arthritis. Has been undergoing treatment for urinary incontinence for the past year. Is currently unemployed due to intellectual disability. Patient reports she has started using a n[place]ic track for exercise and walking up a steep hill near her home for exercise but doesn't last very long because she gets tired quickly. Has also been doing exercises with hand weights. Prior Treatments and Tests Is waiting for approval for x- ray. Has had one visit of PT for back pain in the past but none for this episode. Future Testing and Treatments Planned Considering bariatric surgery. Is starting a weight loss medication first. Treatment Goals Patient/Caregiver Goals To lose weight, to get rid of the pain. To be able to work in the future without having back pain. PT-OP-C Subjective Start: 04/05/23 11:59 Freq: Status: Active Protocol: Document 05/15/23 13:51 ES (Rec: 05/15/23 14:40 ES [id number]) OP-PT Subjective Patient Comments Patient Comments Patient reported that when she sits and is moving throughout the day she still has back pain. Has been doing her exercises and they don't seem to aggravate her back. Is using a pillow behind her back at her computer and that has been helping. PT-OP-J Posture/Palpation/Skin Start: 04/05/23 11:59 Freq: Status: Active Protocol: Document 04/05/23 12:46 ES (Rec: 04/05/23 14:17 ES [id number]) Posture Evaluation Position Standing Head/C-Spine Posture Forward Head T-Spine Posture Increased Kyphosis L-Spine Posture Increased Lordosis Pelvis Posture Neutral Palpation Assessment Location One Palpation Location Lumbar Palpation Findings Tenderness Palpation Details Tenderness along lumbar paraspinals B, non-specific PT-OP-K Range of Motion Start: 04/05/23 11:59 Freq: Status: Active Protocol: Document 04/05/23 12:46 ES (Rec: 04/05/23 14:17 ES [id number]) Lumbar Spine Range of Motion Lumbar Spine Active Percentage Testing Position Standing Flexion 100 Extension 100 Rotation Left 90 Rotation Right 90 Lateral Flexion Left 100 Lateral Flexion Right 90 Comments Increased pain with extension PT-OP-L Special Tests Start: 04/05/23 11:59 Freq: Status: Active Protocol: Document 04/05/23 12:46 ES (Rec: 04/05/23 14:17 ES [id number]) Special Tests Lumbar Spine Special Tests Quadruped hip extension Test Results Lumbar extension and rotation noted with B testing, painful Comments Decreased pain with cue for abdominal contraction, neutral spine Prone hip extension Test Results Lumbar extension and rotation noted with B testing, painful Comments Decreased pain with cue for abdominal contraction, neutral spine Seated hip flexion Test Results Lumbar extension and rotation with B testing, painful Comments Decreased pain with cue for abdominal contraction, neutral spine Prone Instability Test Test Results Negative Prone Knee Flexion Test Results Lumbar extension and rotation with B testing, painful Comments Decreased pain with cue for abdominal contraction, neutral spine PT-OP-M Strength Start: 04/05/23 11:59 Freq: Status: Active Protocol: Document 04/05/23 12:46 ES (Rec: 04/05/23 14:17 ES [id number]) Trunk Strength Trunk Manual Muscle Testing Testing Position Supine Core Stabilization Poor Comments Lower abdominal strength <1/5 PT-OP-Q Treatments Start: 04/05/23 11:59 Freq: Status: Active Protocol: Document 05/15/23 13:51 ES (Rec: 05/15/23 14:40 ES [id number]) Therapeutic Exercises Supine Exercises Bridge Reps/Minutes x10 Comments Instructed for home; cued for increased glute activation Prone Exercises Quadruped rocking back Reps/Minutes x10 Comments For teaching hip hinge, mirror for feedback Cat-cow Reps/Minutes x10 Comments For teaching pelvic tilt, mirror for feedback Modified plank Reps/Minutes [id number] Comments Cued for flat back, increased TA activation, instructed for home Neuro Re-Education Treatment Movement Re-Education Movement Re-education Activities Forward bend with mirror for visual feedback, tactile and verbal cues for posture. Cued for increased hip hinge, flat back, decreased thoracic kyphosis. Progressed to reaching down to purse on floor and retrieving from ground level. Kinesiotape I strips applied to B lumbar paraspinals with 75% stretch in flexion to improve posture awareness. PT-OP-T Assessment and Plan Start: 04/05/23 11:59 Freq: Status: Active Protocol: Document 05/15/23 13:51 ES (Rec: 05/15/23 14:40 ES [id number]) Physical Therapy Assessment Goals Three Impairment Lifting Pile Header Goal (LTG) Patient will be able to lift and carry 15 lbs with correct body mechanics and no increase in pain. LTG Duration 8 weeks Two Impairment Standing tolerance Usp Goal (LTG) Patient will be able to stand for at least 1 hour with 4/10 pain at worst. LTG Duration 8 weeks One Impairment Strength Short Term Goal (STG) Patient will increase lower abdominal strength to 2/5 to improve posture control and decrease pain with standing/ activity. STG Duration 4 weeks Assessment Summary Assessment Patient demonstrated poor body mechanics for bending and lifting, with increased lumbar and thoracic flexion, minimal hip flexion. She was able to correct with extensive cueing, visual feedback, and practice . She was able to perform forward bend without increased pain by end of session. She was able to tolerate exercise progression without increased back pain. She will benefit from further therapy to work on body mechanics, posture awareness, and core strength to reduce pain with daily activity. Physical Therapy Plan Frequency and Duration Frequency of Treatment 1x/Week Duration of treatment (weeks) 8 Plan of Care Start Date 04/05/23 Plan of Care End Date 05/31/23 Therapeutic Interventions Therapeutic Interventions Home Exercise Program,Manual Therapy,Patient/Caregiver Education,Self-Care/Home Management,Soft Tissue Mobilization,Taping, Therapeutic Activities, Therapeutic Exercises Modalities Electric Stimulation,Hot Packs Next Visit Focus/Plan Next Note Type Treatment Note Next Visit Plan Follow up on forward bend/lift training, posture training with ADL's. Progress core strength as tolerated.
--- NOTE | 2023-05-24 16:00 | PT.OTN ---
Current Diagnoses Spondylosis, unspecified (05/24/23) Low back pain, unspecified (05/24/23) Physical Therapy Treatment Note PT-OP-A Visit Information Start: 04/05/23 11:59 Freq: Status: Active Protocol: Document 05/24/23 13:01 ES (Rec: 05/24/23 13:49 ES [id number]) Out-Patient Physical Therapy Visit Information Visit Information Visit Type Treatment Note Visit Start Time 13:04 Visit Stop Time 13:49 Total Visit Minutes 45 Visit Number 4 Number of COLON THERAPIST Visits 0 Evaluation Information Evaluation Date 04/05/23 PT-OP-B Current Condition Start: 04/05/23 11:59 Freq: Status: Active Protocol: Document 04/05/23 12:46 ES (Rec: 04/05/23 14:17 ES [id number]) Current Condition History of Current Condition Onset Date 3 months ago Current Complaints Lower back pain History of Current Condition Patient reported she was sitting in a chair working on her computer and started feeling pain in her lower back . The pain is getting worse over time. Denies numbness/ tingling. Has had back pain in the past and states she has been told she has scoliosis and arthritis. Has been undergoing treatment for urinary incontinence for the past year. Is currently unemployed due to intellectual disability. Patient reports she has started using a n[place]ic track for exercise and walking up a steep hill near her home for exercise but doesn't last very long because she gets tired quickly. Has also been doing exercises with hand weights. Prior Treatments and Tests Is waiting for approval for x- ray. Has had one visit of PT for back pain in the past but none for this episode. Future Testing and Treatments Planned Considering bariatric surgery. Is starting a weight loss medication first. Treatment Goals Patient/Caregiver Goals To lose weight, to get rid of the pain. To be able to work in the future without having back pain. PT-OP-C Subjective Start: 04/05/23 11:59 Freq: Status: Active Protocol: Document 05/24/23 13:01 ES (Rec: 05/24/23 13:49 ES [id number]) OP-PT Subjective Patient Comments Patient Comments Patient reported that she left the tape on for 3 days and thought it helped her posture. Had less pain when keeping better posture. Stated she has been doing her exercises in the morning; the plank is hard but knows it's supposed to be . 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 Has a bariatric surgery consult on 10/11. PT-OP-J Posture/Palpation/Skin Start: 04/05/23 11:59 Freq: Status: Active Protocol: Document 04/05/23 12:46 ES (Rec: 04/05/23 14:17 ES [id number]) Posture Evaluation Position Standing Head/C-Spine Posture Forward Head T-Spine Posture Increased Kyphosis L-Spine Posture Increased Lordosis Pelvis Posture Neutral Palpation Assessment Location One Palpation Location Lumbar Palpation Findings Tenderness Palpation Details Tenderness along lumbar paraspinals B, non-specific PT-OP-K Range of Motion Start: 04/05/23 11:59 Freq: Status: Active Protocol: Document 04/05/23 12:46 ES (Rec: 04/05/23 14:17 ES [id number]) Lumbar Spine Range of Motion Lumbar Spine Active Percentage Testing Position Standing Flexion 100 Extension 100 Rotation Left 90 Rotation Right 90 Lateral Flexion Left 100 Lateral Flexion Right 90 Comments Increased pain with extension PT-OP-L Special Tests Start: 04/05/23 11:59 Freq: Status: Active Protocol: Document 04/05/23 12:46 ES (Rec: 04/05/23 14:17 ES [id number]) Special Tests Lumbar Spine Special Tests Quadruped hip extension Test Results Lumbar extension and rotation noted with B testing, painful Comments Decreased pain with cue for abdominal contraction, neutral spine Prone hip extension Test Results Lumbar extension and rotation noted with B testing, painful Comments Decreased pain with cue for abdominal contraction, neutral spine Seated hip flexion Test Results Lumbar extension and rotation with B testing, painful Comments Decreased pain with cue for abdominal contraction, neutral spine Prone Instability Test Test Results Negative Prone Knee Flexion Test Results Lumbar extension and rotation with B testing, painful Comments Decreased pain with cue for abdominal contraction, neutral spine PT-OP-M Strength Start: 04/05/23 11:59 Freq: Status: Active Protocol: Document 04/05/23 12:46 ES (Rec: 04/05/23 14:17 ES [id number]) Trunk Strength Trunk Manual Muscle Testing Testing Position Supine Core Stabilization Poor Comments Lower abdominal strength <1/5 PT-OP-Q Treatments Start: 04/05/23 11:59 Freq: Status: Active Protocol: Document 05/24/23 13:01 ES (Rec: 05/24/23 13:49 ES [id number]) Cardio Equipment Recumbent Stepper (Sci-Fit) Duration (Minutes) 5 Resistance 2.0 Seat Position 11 Gym Equipment Cable Column (Body Solid) Rows Details cued for upright posture, neutral spine Resistance 20lb Reps/Time x15 Therapeutic Exercises Standing Exercises Bent over row Side bilateral Resistance 5lb dumbell Equipment Used Low bench Reps/Minutes 2x10 ea side Neuro Re-Education Treatment Movement Re-Education Movement Re-education Activities Forward bend training for hip hinge, neutral spine. Progressed from quadruped rocking with visual feedback via photos, to supported electrolysis operator's bow, to unsupported electrolysis operator's bow, to reaching down and retrieving from knee height, to reaching down and retrieving 5lb dumbell from knee height. Tactile, visual, and verbal cues throughout, decreasing cues during treatment as able. PT-OP-T Assessment and Plan Start: 04/05/23 11:59 Freq: Status: Active Protocol: Document 05/24/23 13:01 ES (Rec: 05/24/23 13:49 ES [id number]) Physical Therapy Assessment Goals Three Impairment Lifting Usp Goal (LTG) Patient will be able to lift and carry 15 lbs with correct body mechanics and no increase in pain. LTG Duration 8 weeks Two Impairment Standing tolerance Usp Goal (LTG) Patient will be able to stand for at least 1 hour with 4/10 pain at worst. LTG Duration 8 weeks One Impairment Strength Short Term Goal (STG) Patient will increase lower abdominal strength to 2/5 to improve posture control and decrease pain with standing/ activity. STG Duration 4 weeks Assessment Summary Assessment Patient with minor carryover from previous appt, demonstrating neutral spine with decreased number of cues compared to last visit though still required visual, verbal, and tactile cueing and multiple repetitions to be able to carryover to various positions. She reported no pain while performing bending and lifting with 5lb weight when performed with correct mechanics. Physical Therapy Plan Frequency and Duration Frequency of Treatment 1x/Week Duration of treatment (weeks) 8 Plan of Care Start Date 04/05/23 Plan of Care End Date 05/31/23 Therapeutic Interventions Therapeutic Interventions Home Exercise Program,Manual Therapy,Patient/Caregiver Education,Self-Care/Home Management,Soft Tissue Mobilization,Taping, Therapeutic Activities, Therapeutic Exercises Modalities Electric Stimulation,Hot Packs Next Visit Focus/Plan Next Note Type Treatment Note Next Visit Plan Continue with bending/lifting mechanics training, core strengthening.
--- NOTE | 2023-07-05 09:39 | PT.OPDS ---
Current Diagnoses Spondylosis, unspecified (05/24/23) Low back pain, unspecified (05/24/23) Visit Care Team Role Provider Type Alan Quiros ND Primary Care Provider Non-Staff Specialty: Naturopathy Address: [address] [place] [address], [facility], [place], [address] Email: Ronit Hernández PA-C Attending Provider [employer] Dean Family Provider Referring Provider Specialty: Medical Address: [address] [place] [address], [id number] Email: Visit Number Visit Number 4 Discharge Summary PT-OP-B Current Condition Start: 04/05/23 11:59 Freq: Status: Active Protocol: Document 04/05/23 12:46 ES (Rec: 04/05/23 14:17 ES [id number]) Current Condition History of Current Condition Onset Date 3 months ago Current Complaints Lower back pain History of Current Condition Patient reported she was sitting in a chair working on her computer and started feeling pain in her lower back . The pain is getting worse over time. Denies numbness/ tingling. Has had back pain in the past and states she has been told she has scoliosis and arthritis. Has been undergoing treatment for urinary incontinence for the past year. Is currently unemployed due to intellectual disability. Patient reports she has started using a nordic track for exercise and walking up a steep hill near her home for exercise but doesn't last very long because she gets tired quickly. Has also been doing exercises with hand weights. Prior Treatments and Tests Is waiting for approval for x- ray. Has had one visit of PT for back pain in the past but none for this episode. Future Testing and Treatments Planned Considering bariatric surgery. Is starting a weight loss medication first. Treatment Goals Patient/Caregiver Goals To lose weight, to get rid of the pain. To be able to work in the future without having back pain. PT-OP-C Subjective Start: 04/05/23 11:59 Freq: Status: Active Protocol: Document 05/24/23 13:01 ES (Rec: 05/24/23 13:49 ES [id number]) OP-PT Subjective Patient Comments Patient Comments Patient reported that she left the tape on for 3 days and thought it helped her posture. Had less pain when keeping better posture. Stated she has been doing her exercises in the morning; the plank is hard but knows it's supposed to be . 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 Has a bariatric surgery consult on 10/11. PT-OP-J Posture/Palpation/Skin Start: 04/05/23 11:59 Freq: Status: Active Protocol: Document 04/05/23 12:46 ES (Rec: 04/05/23 14:17 ES [id number]) Posture Evaluation Position Standing Head/C-Spine Posture Forward Head T-Spine Posture Increased Kyphosis L-Spine Posture Increased Lordosis Pelvis Posture Neutral Palpation Assessment Location One Palpation Location Lumbar Palpation Findings Tenderness Palpation Details Tenderness along lumbar paraspinals B, non-specific PT-OP-K Range of Motion Start: 04/05/23 11:59 Freq: Status: Active Protocol: Document 04/05/23 12:46 ES (Rec: 04/05/23 14:17 ES [id number]) Lumbar Spine Range of Motion Lumbar Spine Active Percentage Testing Position Standing Flexion 100 Extension 100 Rotation Left 90 Rotation Right 90 Lateral Flexion Left 100 Lateral Flexion Right 90 Comments Increased pain with extension PT-OP-L Special Tests Start: 04/05/23 11:59 Freq: Status: Active Protocol: Document 04/05/23 12:46 ES (Rec: 04/05/23 14:17 ES [id number]) Special Tests Lumbar Spine Special Tests Quadruped hip extension Test Results Lumbar extension and rotation noted with B testing, painful Comments Decreased pain with cue for abdominal contraction, neutral spine Prone hip extension Test Results Lumbar extension and rotation noted with B testing, painful Comments Decreased pain with cue for abdominal contraction, neutral spine Seated hip flexion Test Results Lumbar extension and rotation with B testing, painful Comments Decreased pain with cue for abdominal contraction, neutral spine Prone Instability Test Test Results Negative Prone Knee Flexion Test Results Lumbar extension and rotation with B testing, painful Comments Decreased pain with cue for abdominal contraction, neutral spine PT-OP-M Strength Start: 04/05/23 11:59 Freq: Status: Active Protocol: Document 04/05/23 12:46 ES (Rec: 04/05/23 14:17 ES [id number]) Trunk Strength Trunk Manual Muscle Testing Testing Position Supine Core Stabilization Poor Comments Lower abdominal strength <1/5 PT-OP-T Assessment and Plan Start: 04/05/23 11:59 Freq: Status: Active Protocol: Document 07/05/23 09:30 LRN (Rec: 07/05/23 09:39 LRN [id number]) Physical Therapy Assessment Goals Three Impairment Lifting Care Home Goal (LTG) Patient will be able to lift and carry 15 lbs with correct body mechanics and no increase in pain. LTG Duration 8 weeks (Goal not assessed ). Two Impairment Standing tolerance Care Home Goal (LTG) Patient will be able to stand for at least 1 hour with 4/10 pain at worst. LTG Duration 8 weeks (Goal not assessed ) One Impairment Strength Short Term Goal (STG) Patient will increase lower abdominal strength to 2/5 to improve posture control and decrease pain with standing/ activity. STG Duration 4 weeks (Goal not assessed) Assessment Summary Assessment Pt was seen by Rupal Iverson PT who is no longer at facility. The pt's plan of care 05/24/23; therefore the pt is being discharged from physical therapy. Physical Therapy Plan Discharge Physical Therapy Discharge Reasons No Longer Attending PT Discharge Comments Pt discharged due to POC. A new referral would be needed for pt to return to physical therapy.
== END 2023-07-09 12:48 | disposition home or self-care (01) ==
LOC: PHYS 13:00
PROVIDERS: Family Provider Physician Assistant; PCP Naturopath; Referring Provider Physician Assistant; Visit Provider Physician Assistant
DX: M47.9 Spondylosis, unspecified (principal); M54.50 Low back pain, unspecified
CPT/HCPCS: 97110; 97112; 97140; 97161; 97535

== ENCOUNTER 2023-09-28 12:20 | Outpatient (RCR) | payer OTHER, MEDICAID, SELFPAY ==
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
--- NOTE | 2023-09-28 17:33 | PT.OPPOC ---
Physical, Occupational & Speech Therapy At [facility] Current Diagnoses Other chronic pain (09/28/23) Lumbago with sciatica, unspecified side (09/28/23) Low back pain, unspecified (09/28/23) Visit Care Team Role Provider Type Sacha Gonzalez MD Attending Provider Non-Staff Family Provider Primary Care Provider Referring Provider Specialty: Family Practice Address: [address] [place] [address], [facility] Email: Plan Of Care PT-OP-T Assessment and Plan Start: 09/28/23 12:34 Freq: Status: Active Protocol: Document 09/28/23 12:34 LRN (Rec: 09/28/23 14:02 LRN [id number]) Physical Therapy Assessment Rehab Potential Rehabilitation Potential Excellent Evaluation Complexity Number of Personal Factors/Comorbidities 1-2 Number of Body Systems Impaired 4 or More Clinical Presentation at Evaluation Evolving Impairments Impairments Activity Tolerance,Pain, Posture,ROM,Soft Tissue Mobility,Strength,Transfers Goals Three Impairment Decreased function per NARCISA score of 38 (20-39% impaired, score 20-39) Custodial Goal (LTG) Improve functin per NARCISA score 19 or less (1-19% impaired, score 1-19) LTG Duration 7 wks-11/16/23 Two Impairment Intermittent LBP rated 6/10 Short Term Goal (STG) Pt able to start 10' aerobic exercise to help with wgt loss . STG Duration 5 wks-11/02/23 Custodial Goal (LTG) Relieve back pain to be able to walk 1 mile w/o pain. LTG Duration 7 wks-11/16/23 One Impairment Lacks HEP Short Term Goal (STG) Pt will be educated in proper posture (sit/stand), log roll transfer and proper body mechanics. STG Duration 2 wks-10/12/23 Special Needs Tutor Goal (LTG) Pt will be educated in a self care HEP of core stabilization , hip mobility/strength exercises. LTG Duration 7 wks-11/16/23 Assessment Summary Assessment Pt is a 38 yo female who presents with mechanical and soft tissue dysfunction of the lumbar spine with possible neurological dysfunction. She has a + SLR bilaterally and + manual lumbar traction response, but further assessment of DTRs and neural tension (slump test) is needed . She has tenderness of her naa Quadratus Lumborum and gluteals with restriction in hip mobility and strength due to pain. The pt will benefit from skilled physical therapy for pt education, core stabilization, ther ex, STM and modalities for pain. Physical Therapy Plan Frequency and Duration Frequency of Treatment 2x/Week Duration of treatment (weeks) 7 Plan of Care Start Date 09/28/23 Plan of Care End Date 11/16/23 Therapeutic Interventions Therapeutic Interventions Home Exercise Program,Joint Mobilizations,Manual Therapy, Neuromuscular Re-education, Self-Care/Home Management,Soft Tissue Mobilization, Therapeutic Activities, Therapeutic Exercises Modalities Cold Pack/Ice Massage,Electric Stimulation,Hot Packs Next Visit Focus/Plan Next Note Type Treatment Note Next Visit Plan POC: 2x/wk for 5 wks, 1x/wk for 1 wk. Lumbar rehab for lower lumbar possible herniated discs. Next: Assess LE DTR's, and slump test. Pt education in log roll transfers, and proper sit/stand posture & body mechanics. TA tightening, Manual therapy, lumbar traction, ending with MH. Educ: Use of hot/cold for self care pain mgmt. Manual: JMT-T/S, MFR for sacral extension, Hip flexor relaxation, STM-gluteals, sacral border. Ex: Hip (R>L) ER/IR & Ilipsoas stretch, hip/core strengthening, lumbar ?flexion vs extension program, core/ pelvic stabilization. HEP: core stab, hip IR/ER/ Iliopsoas stretch. Plan of Care Dates Plan of Care Start Date 09/28/23 Plan of Care End Date 11/16/23 Electronically Signed by: Beckie Hendrix, PT 09/28/23 8141 If you are in agreement with this Plan of Care, please return a signed and dated copy. I have reviewed this Plan of Care and certify that the skilled therapy services above are required to meet the patient?s needs. Physician Signature Date Printed Name and Credentials Clinical Instructor Signature Printed Name and Credentials
--- NOTE | 2023-11-13 15:42 | PT-OP ANOTE ---
Per phone conversation the pt states she has not been able to come to therapy due to transportation problems. Her insurance was to cover the cost of transportation from [place], [place]. Pt was notified of end of her Plan of Care (POC) date and that she would need a new referral to attend physicl therapy, so recommended pt seek PT practice closer to her home and to request new referral for referring physician to restart PT at a location closer to her home. Pt agreeable. Pt reporting no change.
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
== END 2023-11-14 14:49 | disposition home or self-care (01) ==
LOC: PHYS 12:20
PROVIDERS: Family Provider Family Medicine; PCP Family Medicine; Referring Provider Family Medicine; Visit Provider Family Medicine
DX: M54.40 Lumbago with sciatica, unspecified side (principal); G89.29 Other chronic pain
CPT/HCPCS: 97162

== ENCOUNTER → 2024-06-13 11:24 | Outpatient (CLI) | payer OTHER, MEDICAID, SELFPAY ==
--- NOTE | 2024-06-13 11:26 | DI.MG.S_ITS ---
BILATERAL DIGITAL SCREENING MAMMOGRAM 3D/2D WITH CAD: 06/13/2024 CLINICAL: Routine screening. Comparison is made to exams dated: 07/05/2022 mammogram, 06/29/2021 mammogram, 06/01/2020 mammogram, 01/12/2021 mammogram, and 05/11/2017 mammogram - [facility]. There are scattered areas of fibroglandular density in both breasts (category b / 25%-50% glandular tissue). Current study was also evaluated with a Computer Aided Detection (CAD) system. No significant masses, calcifications, or other findings are seen in either breast. There has been no significant interval change. IMPRESSION: NEGATIVE There is no mammographic evidence of malignancy. A 1 year screening mammogram is recommended. Based on the Tyrer Cuzick model (a risk assessment model) the patient's lifetime risk is 9.5% and her 10 year risk is 1.2%. According to the ACR, ACS, and NCCN guidelines, an annual breast MRI exam along with mammogram is recommended if the patient's lifetime risk is 20% or greater. This exam was interpreted at Station ID: [id number]. NOTE: For mammograms, a report in lay terms will be sent to the patient. Approximately 15% of breast malignancies will not be visualized mammographically. In the management of a palpable breast mass, a negative mammogram must not discourage biopsy of a clinically suspicious lesion. Electronically Signed By: Andi cole/pipe:06/13/2024 14:31:15 copy to: Teo Gonsalez MD, Dr. Elijah Gonsalez, ph: [phone] letter sent: Normal Exam ACR BI-RADS Category 1: Negative [id number]
== END ==
PROVIDERS: Family Provider Family Medicine; PCP Family Medicine; Referring Provider Family Medicine; Visit Provider Family Medicine
DX: Z12.31 Encounter for screening mammogram for malignant neoplasm of breast (principal); R92.323 Mammographic fibroglandular density, bilateral breasts
CPT/HCPCS: 77063; 77067